=== PATIENT | male | born 1945 | race Caucasian/White ===

== ENCOUNTER 2018-01-25 11:31 | Outpatient (REF) | payer MEDICARE, BC, SELFPAY ==
[2018-01-25 23:53] LABS: Uric Acid 5.5 mg/dL (3.5-7.2)
== END 2018-01-25 11:51 ==
LOC: NCHCN 11:31
PROVIDERS: PCP Internal Medicine; Visit Provider Internal Medicine
DX: M10.9 Gout, unspecified (principal)
CPT/HCPCS: 84550

== ENCOUNTER 2020-02-08 14:01 | Outpatient (REF) | payer MEDICARE, BC, SELFPAY ==
[2020-02-08 21:35] LABS: Calculated LDL 73 mg/dL (<100); Cholesterol 162 mg/dL (<200); HDL Cholesterol 54 mg/dL (40-60); Triglyceride 175 mg/dL (<150)
== END 2020-02-08 14:21 ==
LOC: NCHCN 14:01
PROVIDERS: PCP Internal Medicine; Visit Provider Internal Medicine
DX: I10 Essential (primary) hypertension (principal); I25.10 Atherosclerotic heart disease of native coronary artery without angina pectoris
CPT/HCPCS: 80061

== ENCOUNTER 2021-02-04 15:12 | Outpatient (REF) | payer MEDICARE, BC, SELFPAY ==
[2021-02-04 19:10] LABS: Anion Gap 8.6 mmol/L (3-11); BUN 29 mg/dL (7-18); CO2 28.4 mmol/L (21.0-32.0); CREATININE 1.5 mg/dL (0.70-1.30); Calcium 8.8 mg/dL (8.5-10.1); Calculated LDL 58 mg/dL (<100); Chloride 108 mmol/L (98-107); Cholesterol 134 mg/dL (<200); Estimated GFR 45.75 (mL/min/1.73m2); Glucose 91 mg/dL (74-106); HDL Cholesterol 44 mg/dL (40-60); Potassium 3.8 mmol/L (3.5-5.1); Sodium 145 mmol/L (136-145); Triglyceride 163 mg/dL (<150)
== END 2021-02-04 15:13 | disposition home or self-care (01) ==
LOC: NCHCN 15:12
PROVIDERS: PCP Internal Medicine; Visit Provider Internal Medicine
DX: E78.5 Hyperlipidemia, unspecified (principal); I10 Essential (primary) hypertension
CPT/HCPCS: 80048; 80061

== ENCOUNTER 2021-04-01 20:49 | Outpatient (REF) | payer MEDICARE, BC, SELFPAY ==
[2021-04-01 22:12] LABS: Abs Immature Grans 0.04 10^3/uL (0.0-0.06); Absolute Basophil Count 0.01 10^3/uL (0.0-0.2); Absolute Eosinophil Count 0.12 10^3/uL (0.0-0.7); Absolute Lymphocyte Count 2.54 10^3/uL (1.2-3.4); Absolute Monocyte Count 0.64 10^3/uL (0.1-0.8); Absolute Neutrophil Count 3.16 10^3/uL (1.2-6.7); Basophils % 0.2; Eosinophils % 1.8; HCT 46.6 % (40.0-50.0); HGB 16.1 g/dL (13.5-17.5); Immature Grans % 0.6; MCH 32.5 pg (27.0-33.0); MCHC 34.5 % (32.0-36.0); Monocytes % 9.8; Neutrophils % 48.6; Nucleated RBC 0 %; Platelet Count 209 10^3/uL (130-400); RBC 4.96 10^6/uL (4.36-5.78); RDW 12.5 % (11.8-14.1); RDW-SD 42.9 fL; WBC 6.51 10^3/uL (4.4-10.8)
[2021-04-02 07:11] LABS: Albumin 4.7 g/dL (3.4-5.0); Alkaline Phosphatase 98 U/L (46-116); BUN 26 mg/dL (7-18); Bilirubin, Total 0.7 mg/dL (0.2-1.0); CREATININE 1.3 mg/dL (0.70-1.30); Estimated GFR 53.96 (mL/min/1.73m2); Glucose 79 mg/dL (74-106); Sodium 144 mmol/L (136-145); Total Protein 8.1 g/dL (6.4-8.2)
[2021-04-02 07:12] LABS: ALT 45 U/L (16-63); AST 24 U/L (15-37); Anion Gap 10.1 mmol/L (3-11); CO2 27.9 mmol/L (21.0-32.0); Chloride 106 mmol/L (98-107); NT-proBNP 235 pg/mL (<300); Potassium 3.7 mmol/L (3.5-5.1); TSH (W/Ref FT4) 1.74 uIU/mL (0.36-3.74)
== END 2021-04-01 20:50 | disposition home or self-care (01) ==
LOC: NCHCN 20:49
PROVIDERS: PCP Internal Medicine; Visit Provider Internal Medicine
DX: N18.31 Chronic kidney disease, stage 3a (principal); I25.10 Atherosclerotic heart disease of native coronary artery without angina pectoris; R06.02 Shortness of breath; R06.01 Orthopnea
CPT/HCPCS: 80053; 83880; 84443; 85025

== ENCOUNTER 2021-05-12 14:07 | Outpatient (REF) | payer MEDICARE, BC, SELFPAY ==
[2021-05-12 21:32] LABS: Anion Gap 7.3 mmol/L (3-11); BUN 26 mg/dL (7-18); CO2 31.7 mmol/L (21.0-32.0); CREATININE 1.3 mg/dL (0.70-1.30); Calcium 9.2 mg/dL (8.5-10.1); Chloride 104 mmol/L (98-107); Estimated GFR 53.96 (mL/min/1.73m2); Glucose 88 mg/dL (74-106); Potassium 3.5 mmol/L (3.5-5.1); Sodium 143 mmol/L (136-145)
== END 2021-05-12 14:08 | disposition home or self-care (01) ==
LOC: NCHCN 14:07
PROVIDERS: PCP Internal Medicine; Visit Provider Internal Medicine
DX: N18.31 Chronic kidney disease, stage 3a (principal)
CPT/HCPCS: 80048

== ENCOUNTER 2022-02-08 14:35 | Outpatient (REF) | payer MEDICARE, SELFPAY ==
[2022-02-08 21:03] LABS: Anion Gap 8.5 mmol/L (3-11); BUN 26 mg/dL (7-18); CO2 30.5 mmol/L (21.0-32.0); CREATININE 1.2 mg/dL (0.70-1.30); Calcium 10.1 mg/dL (8.5-10.1); Calculated LDL 68 mg/dL (<100); Chloride 102 mmol/L (98-107); Cholesterol 157 mg/dL (<200); Estimated GFR 63.07 (mL/min/1.73m2); Glucose 88 mg/dL (74-106); HDL Cholesterol 65 mg/dL (40-60); Potassium 4.1 mmol/L (3.5-5.1); Sodium 141 mmol/L (136-145); Triglyceride 123 mg/dL (<150)
== END 2022-02-08 14:36 | disposition home or self-care (01) ==
LOC: NCHCN 14:35
PROVIDERS: PCP Internal Medicine; Visit Provider Internal Medicine
DX: E78.5 Hyperlipidemia, unspecified (principal); I10 Essential (primary) hypertension; N18.31 Chronic kidney disease, stage 3a; Z00.00 Encounter for general adult medical examination without abnormal findings
CPT/HCPCS: 80048; 80061

== ENCOUNTER 2023-02-10 20:00 | Outpatient (REF) | payer MEDICARE, SELFPAY ==
[2023-02-10 14:34] LABS: Anion Gap 7.8 mmol/L (3-11); BUN 26 mg/dL (7-18); CO2 26.2 mmol/L (21.0-32.0); CREATININE 1.4 mg/dL (0.70-1.30); Chloride 106 mmol/L (98-107); Estimated GFR 52.09 (mL/min/1.73m2); Glucose 101 mg/dL (74-106); Sodium 140 mmol/L (136-145)
== END 2023-02-10 20:01 | disposition home or self-care (01) ==
LOC: NCHCN 20:00
PROVIDERS: PCP Internal Medicine; Visit Provider Internal Medicine
DX: I10 Essential (primary) hypertension (principal)
CPT/HCPCS: 80048

== ENCOUNTER 2023-12-30 15:14 | Outpatient (REF) | payer MEDICARE, SELFPAY ==
--- OUTSIDE RECORDS SUMMARY | 2023-12-30 15:17 | XMS_ITS | Data Portability ---
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 tablet by mouth once a day 11/05 completed Not Available Not Available Not Available aspirin 81 mg tablet,de layed release Take 1 tablet by mouth once a day active hold until 01/03/24 after completi ng course of aspirin 325 mg bid Not Available Not Available Not Available tramadol 50 mg tablet TAKE 1-2 TABLETS BY ORAL ROUTE EVERY 6 HOURS NEEDED 12/29 completed Not Available Not Available Not Available acetamino phen 500 mg tablet Take 2 tablet by mouth every six hours as needed for pain active Not Available Not Available No t Available spironola ctone 25 mg tablet TAKE 1/2 TABLET BY MOUTH DAILY active Not Available Not Available No t Available amoxicill in 500 mg tablet Take 4 tablet by mouth 12/31 completed Not Available Not Available Not Available carvedilo l 3.125 mg tablet TAKE 1 TABLET BY MOUTH TWICE DAILY WITH FOOD active Not Available Not Available No t Available pantopraz ole 20 mg tablet,de layed release TAKE 1 TABLET BY MOUTH EVERY DAY active Not Available Not Available No t Available Celebrex 200 mg capsule 1TAB daily 09/27 completed Not Available Not Available Not Available meloxicam 7.5 mg tablet Take 1 tablet every day by oral route for 14 days. 12/15 completed Not Available Not Available Not Available Nitrostat 0.4 mg sublingua l tablet Place 1 tablet under tongue as directed 2020 active Not Available Not Available Not Avai lable amlodipin e 10 mg tablet Take 1/2 tablet by mouth once a day 02/15 completed Not Available Not Available Not Available pantopraz ole 40 mg tablet,de layed release 1 tablet by mouth once a day 02/11 completed Not Available Not Available Not Available Cipro 500 mg tablet 1 bid 09/16 completed Not Available Not Available Not Available glucosami ne sulfate 500 mg capsule 1 tab daily 2013 active Not Available Not Available Not Avai lable lisinopri l 20 mg-hydroc hlorothia zide 25 mg tablet TAKE 1 TABLET BY MOUTH EVERY DAY active Not Available Not Available No t Available aspirin 81 mg tablet Take 1 tablet by mouth once a day 10/15 completed Not Available Not Available Not Available gabapenti n 100 mg capsule start at 100mg at HS, increasi ng to 100mg bid if tolerate d 11/18 completed Not Available Not Available Not Available metoprolo l succinate ER 25 mg tablet,ex tended release 24 hr Take 1 tablet by mouth once a day 02/23 completed Not Available Not Available Not Available Viagra 100 mg tablet 0.5 tablet by mouth as directed as needed 2021 active Not Available Not Available Not Avai lable lisinopri l 10 mg-hydroc hlorothia zide 12.5 mg tablet 2 qd 2014 active Not Available Not Available Not Avai lable Nitro-Dur 0.4 mg/hr transderm al 24 hour patch 1 tab q 5 minutes prn 2013 active Not Available Not Available Not Avai lable multivita min capsule daily 2011 active Not Available Not Available Not Avai lable oxycodone 5 mg tablet Take 1 tablet every 6 hours by oral route as needed. 12/15 completed Not Available Not Available Not Available rosuvasta tin 10 mg tablet Take 1 tablet by mouth once a day increase after 1 month to 20 mg if doing fine 09/09 completed Not Available Not Available Not Available rosuvasta tin 20 mg tablet TAKE 1 TABLET BY MOUTH EVERY DAY 12/06 completed increase d to 40 mg by PCP Not Available Not Available Not Available rosuvasta tin 40 mg tablet TAKE 1 TABLET BY MOUTH EVERY DAY active Not Available Not Available No t Available EpiPen 0.3 mg/0.3 mL injection , auto-inje ctor Take by injectio n route. active Not Available Not Available No t Available EpiPen 2009 active Not Available Not Available Not Avai lable Glucosami ne 1 qd 2013 active Not Available Not Available Not Avai lable multivita min 2011 active Not Available Not Available Not Avai lable Multivita mins once a day 03/02 completed Not Available Not Available Not Available Zostavax (PF) 08/15 completed Not Available Not Available Not Available Farxiga 10 mg tablet TAKE 1 TABLET BY MOUTH DAILY active Not Available Not Available No t Available Entresto 97 mg-103 mg tablet TAKE 1 TABLET BY MOUTH TWICE DAILY active Not Available Not Available No t Available Entresto 49 mg-51 mg tablet TAKE 1 TABLET BY MOUTH TWICE DAILY 12/13 completed dose increase 10/13/23 Not Available Not Available Not Available Entresto 24 mg-26 mg tablet 1 tablet by mouth twice a day 2022 active Not Available Not Available Not Avai lable Narcan 4 mg/actuat ion nasal spray Take by nasal route. 12/29 completed Not Available Not Available Not Available Vitals Date Recorded Body height Body mass index (BMI) Body weight Oxygen saturation Oxygen saturation in Arterial blood by Pulse oximetry Heart rate Body temperature Systolic blood pressure Diastolic blood pressure Provider Name and Address Organization Details Last Updated DateTime 4 179.324 cm 29.8 kg/m2 75677.9 9 g 100 % 100 % 79 /min 97.9 [degF] 100 mm[Hg] 78 mm[Hg] XIMENA BRADSHAW MA [facility] 4 14:50:35 Date Recorded Body height Body mass index (BMI) Body weight Body temperature Oxygen saturation Oxygen saturation in Arterial blood by Pulse oximetry Heart rate Systolic blood pressure Diastolic blood pressure Provider Name and Address Organization Details Last Updated DateTime 4 179.324 cm 29.7 kg/m2 93748.5 g 97.7 [degF] 94 % 94 % 76 /min 112 mm[Hg] 74 mm[Hg] LIBERTY ANAND LPN [facility] 4 13:41:51 Date Recorded Body height Body mass index (BMI) Body weight Body temperature Oxygen saturation Oxygen saturation in Arterial blood by Pulse oximetry Heart rate Systolic blood pressure Diastolic blood pressure Provider Name and Address Organization Details Last Updated DateTime 4 179.324 cm 29.2 kg/m2 40719.9 g 97.3 [degF] 99 % 99 % 76 /min 116 mm[Hg] 64 mm[Hg] Effie Garcia LPN [facility] 4 12:54:57 Social History Question Answer Notes LastModified by Organizat ion Details LastModified Time Tobacco Smoking Status Never Smoker LIBERTY ANAND LPN [facility] 12/16/2023 13:45:02 What Was The Date Of Your Most Recent Tobacco Screening? 12/30/2023 [email or web address] Information not available 12/30/2023 Has Tobacco Cessation Counseling Been Provided? No Information not available 12/16/2023 Do You Or Have You Ever Used Any Other Forms Of Tobacco Or Nicotine? No Information not available 12/16/2023 Sex: Male Functional Status None recorded. Mental Status None recorded. Family History Relationship Description Onset Age of this Age Resolved Age Notes Mother Family history of he art failure Notes:*Problem: Mother: dece ased age 78 cause HEART DISEASE Father: age 76 cause PROSTATE CA Sisters: 2, 1 on Rx for HTN; , age 65, GAME [employer]OPER tumor Brothers: none Children: 2, both well Family History of: Hypertension: yes Hyperlipidemia: yes Coronary heart disease: yes Diabetes mellitus: no Breast cancer: no Colorectal cancer: yes Alcoholism: no Mental illness: no Other: PROSTATE CA --paternal uncle too 09/22/16 His youngest son recently had a cardiac event requiring a stent. Medical History No medical history recorded. Immunizations Vaccine Type Date Status Provider Name and Address Organization Details Recorded Time Tdap 01/08/2016 completed Not Available [facility] 04:49:50 Tdap 03/13/2007 completed Not Available [facility] 04:49:50 zoster live 04/15/2019 completed Not Available [facility] 04/01/2023 04:49:51 Pneumococcal conjugate PCV 13 09/15/2015 completed Not Available [facility] 04/01/2023 04:49:51 Influenza, high-dose, trivalent, PF 05/18/2016 completed Not Available [facility] 04/01/2023 04:49:51 Td(adult) unspecified formulation 04/22/1997 completed Not Available [facility] 04/01/2023 04:49:51 Influenza, split virus, quadrivalent, preservative 03/07/2017 completed Not Available [facility] 04/01/2023 04:49:52 zoster recombinant 01/01/2020 completed Not Available [facility] 04/01/2023 04:49:52 Influenza, high-dose, quadrivalent, PF 02/11/2021 completed Not Available [facility] 04/01/2023 04:49:53 COVID-19, mRNA, LNP-S, PF, 30 mcg/0.3 mL dose, richard-sucrose 09/29/2021 completed Not Available [facility] 04/01/2023 04:49:53 COVID-19, mRNA, LNP-S, bivalent, PF, 30 mcg/0.3 mL dose 02/15/2022 completed Not Available [facility] 04/01/20 04:49:53 pneumococcal polysaccharide PPV23 08/16/2011 completed Not Available [facility] 2022 04:49:54 influenza, unspecified formulation 03/13/2007 completed Not Available [facility] 04/01/2023 04:49:54 influenza, unspecified formulation 03/29/2011 completed Not Available [facility] 04/01/2023 04:49:54 influenza, unspecified formulation 04/03/2014 completed Not Available [facility] 04/01/2023 04:49:54 influenza, unspecified formulation 05/06/2008 completed Not Available [facility] 04/01/2023 04:49:54 Influenza, high-dose, quadrivalent, PF 02/23/2023 completed Not Available [facility] 06/03/2023 05:33:00 Past Encounters Encounter ID Performer Location Encounter Start Date Encounter Closed Date Diagnosis/Indication Diagnosis SNOMED-CT Code [id number] JESUS HENDRICKS MD [address] [address] 11/14/2023 14:18:03 11/14/2023 15:23:25 Heart failure with reduced ejection fraction 230435486 Chronic ki dney disease stage 3A 189231425 Atheroscle rosis of coronary artery without angina pectoris [id number] Erythrocytosis 836180653 Cardiac pa cemaker in situ 939806291 Pre-surger y evaluation 698138932 Hyperlipidemia 18109214 [id number] JESUS HENDRICKS MD [address] [address] 12/16/2023 13:33:33 12/16/2023 14:16:47 Malaise and fatigue 324194514 [id number] Andrew Haley [address] [address] 12/30/2023 12:36:31 12/30/2023 13:53:12 Transient visual loss 42328645 Malaise and fatigue 2717 [address] Health Concerns Section Related Observation LastModified by Organization Detai ls LastModified Time None Recorded Concern Status LastModified by Organization Details LastModified Time None Recorded Advance Directives Directive None Recorded Payers Encounter Date Sequence Insurance Name Policy Number Policy Bright Covered Member ID Bright Member ID Guarantor Name 11/14/2023 3 [place] [employer] Elvia Peña [id number] Elvia Peña 11/14/2023 2 [place] PROVIDERS [place]) [id number] Elvia Peña [id number] Elvia Peña 12/16/2023 1 [place]ANT[place] - [place]) Elvia Peña [id number] Elvia Peña 12/16/2023 [place] [id number] ([place]IC[place]) Elvia Peña [id number] Elvia Peña Notes Date Note Type Note Provider Name and Address Organization Details Recorded Time 11/14/2023 text/html HPI Notes: Here for Pre op eval for left TNOIE to be performed by Dr. Celis on 12/05/2023 for left hip OA that has been increasingly bothersome and limiting activity. He has been doing much better from a cardiac standpoint since starting entresto and farxiga, dyspnea is much improved. 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 He does get somewhat dyspneic with activities like push mowing, about 15-20 minutes in he needs to take a break and then can keep goign. No chest pain, palpitations, dizziness, or pedal edema. No cough, no orthopnea. GERD is well controlled on low dose ppi. He is feeling well on his current med regimen. Weight is stable, careful with salt. His is on top of healthy eating, has a lot of vegetables. No gout episodes. He is on vitamin D per Dr. Celis He doesn't snore unless he lays on his back. He intentionally takes naps during the day, about an hour, which has been true for a few years. He sleeps 8 hours overnight, does not snore except occasionally if he's on his back. He is going through a root canal this week. but has no tooth pain or difficulty eating. Vision is stable, has new glasses. Hearing aids are working well. MD Johnnie [address], [place], [phone], [facility]. 11/15/2023 16:07:52 12/16/2023 text/html HPI Notes: Marcelino is here with his Rosalind to f/u ED visit for nausea, malaise, dizziness. He had left hip replacement surgery 12/04, discharged the next day. [place] ok for a couple of days then started to feel poorly. T HE received a small fluid bolus in the ED, felt to be mildly dehydrated, felt quite a bit better after this. HE has continued to feel better this week, had a great day yesterday, however today for some reason he feels poorly again. Drinking 40 ounces of fluids daily now, a mix of water and gatorade, this is more than he usually drinks. Urinating normally, no dysuria, perhaps slightly darker, Not dizzy when he stands up today, just doesn't feel great, mildly weak. He had a good breakfast, then took a nap, Had peanut butter crackers for lunch. No fever/chills. He has been taking nightly tramadol with tylenol at night which is managing pain well, feels pain is improving and likely won't need the tramadol now. He does wake up a few times at night, to urinate and to change positions with hip discomfort. Never took meloxicam. No chest pain or palpitations. Perhaps mild dyspnea with exertion. No edema. BP averages 90s-110s/50s-60s perhaps slightly lower than baseline but isn't sure about this. PT is going well for his hip. JESUS HENDRICKS MD [address], [place], [address], [facility]. 12/17/2023 14:12:09
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
--- OUTSIDE RECORDS SUMMARY | 2023-12-30 15:18 | XMS_ITS ---
Author Organization Unknown Address [address] [place] [phone] Phone Care Team Providers Care Lean Manager Name Role Phone INDU Manuel Attending Unavailable ELADIO Altamirano Primary Unavailable Social History Type Status Start Date End Date Code Code Syst em Smoking History Never smoker (Never Smoked) 413707750 SNOMED CT Sex Male Medications Medication Start Date End Date Route Frequency Dose Code Code System Medication Instructions Home Meds Allopurinol 100MG Oral Tablet 05/31/2018 08/16/2023 ORAL DAILY 100 MILLIGRAMS 893710 RxNorm TAKE 100 MILLIGRAMS ORAL DAILY Aspir Low 81MG Oral Tablet, Enteric Coated 05/31/2018 Unknown ORAL DAILY 81 MILLIGRAMS 6401233 RxNorm TAKE 81 MILLIGRAMS ORAL DAILY Atorvastatin Calcium 40MG Oral Tablet 05/31/2018 08/16/2023 ORAL DAILY 40 MILLIGRAMS 065576 RxNorm TAKE 40 MILLIGRAMS ORAL DAILY Clopidogrel 75MG Oral Tablet 05/31/2018 12/18/2021 ORAL DAILY 75 MILLIGRAMS 079484 RxNorm TAKE 75 MILLIGRAMS ORAL DAILY EPIPEN 0.9MG/0.3ML;N O STREN MULITPL 05/31/2018 Unknown INTRAM USCULA R NEEDED 1 RxNorm INJECT 1 INTRAMUSCUL AR NEEDED GLUCOSAMINE TABLET 05/31/2018 Unknown ORAL DAILY 1 TABLET RxNorm TAKE 1 TABLET ORAL DAILY Lisinopril/hy droCHLOROthia zide 20MG-25MG Oral Tablet 05/31/2018 08/16/2023 ORAL DAILY 1 TABLET [id number] RxNorm TAKE 1 TABLET ORAL DAILY Pantoprazole Sodium 40MG Oral Tablet, Enteric Coated 05/31/2018 12/18/2021 ORAL DAILY 40 MILLIGRAMS 569892 RxNorm TAKE 40 MILLIGRAMS ORAL DAILY TYLENOL 325MG ORAL TABLET 05/31/2018 08/16/2023 ORAL FOUR TIMES A DAY 325 MILLIGRAMS RxNorm TAKE 325 MILLIGRAMS ORAL FOUR TIMES A DAY amLODIPine Besylate 5MG Oral Tablet 05/31/2018 08/16/2023 ORAL DAILY 5 MILLIGRAMS 19721021 RxNorm TAKE 5 MILLIGRAMS ORAL DAILY Torsemide 20MG Oral Tablet 08/16/2023 12/10/2023 ORAL DAILY 1 TABLET [id number] RxNorm TAKE 1 TABLET ORAL DAILY Assessment You had the following problems:OSTEOARTHROSIS, LOCALIZED, NOT SPECIFIED WHETHER PRIMARY OR SECONDARY, INVOLVIN Hospital Discharge Instructions Should you have any questions prior to discharge, please contact a member of your healthcare team. If you have left the hospital and have any questions, please contact your primary care physician. Reason For Referral No Data Found Problems Problem Start Date Resolved Date Status Code Code System OSTEOARTHROSIS, LOCALIZED, N OT SPECIFIED WHETHER PRIMARY OR SECONDARY, INVOLVIN active 432314413 SNOMED-C T Allergies and Adverse Reactions Allergy Substance Reaction Severity Start Date Concern Status Code Code Syste m BEE VENOM Anaphylaxis (SNOMED-CT: 75207209) Moderate Active Plan of Treatment Pre-Op Covid-19 Testing 02/18/2020 X-RAY 02/25/2023 NM MPI STR/RST 09/29/2022 X-RAY 04/02/2021 Encounters Encounter Diagnosis Start Date Code Code Sys tem Atherosclerotic heart diseas e of [place] coronary artery without angina pectoris 09/04/2021 SNOMED-CT Personal Care Team Section Performer Name Performer Role Active Date Inactive Da archana
--- OUTSIDE RECORDS SUMMARY | 2023-12-30 15:18 | XMS_ITS ---
Author Organization Unknown Address [address] [place] [phone] Phone Care Team Providers Care Karate Black Belt Name Role Phone INDU Manuel Attending Unavailable ELADIO Altamirano Primary Unavailable Social History Type Status Start Date End Date Code Code Syst em Smoking History Never smoker (Never Smoked) 768585321 SNOMED CT Sex Male Medications Medication Start Date End Date Route Frequency Dose Code Code System Medication Instructions Home Meds Allopurinol 100MG Oral Tablet 05/31/2018 08/16/2023 ORAL DAILY 100 MILLIGRAMS 894877 RxNorm TAKE 100 MILLIGRAMS ORAL DAILY Aspir Low 81MG Oral Tablet, Enteric Coated 05/31/2018 Unknown ORAL DAILY 81 MILLIGRAMS 5980215 RxNorm TAKE 81 MILLIGRAMS ORAL DAILY Atorvastatin Calcium 40MG Oral Tablet 05/31/2018 08/16/2023 ORAL DAILY 40 MILLIGRAMS 218194 RxNorm TAKE 40 MILLIGRAMS ORAL DAILY Clopidogrel 75MG Oral Tablet 05/31/2018 12/18/2021 ORAL DAILY 75 MILLIGRAMS 920642 RxNorm TAKE 75 MILLIGRAMS ORAL DAILY EPIPEN 0.9MG/0.3ML;N O STREN MULITPL 05/31/2018 Unknown INTRAM USCULA R NEEDED 1 RxNorm INJECT 1 INTRAMUSCUL AR NEEDED GLUCOSAMINE TABLET 05/31/2018 Unknown ORAL DAILY 1 TABLET RxNorm TAKE 1 TABLET ORAL DAILY Lisinopril/hy droCHLOROthia zide 20MG-25MG Oral Tablet 05/31/2018 08/16/2023 ORAL DAILY 1 TABLET 609540 RxNorm TAKE 1 TABLET ORAL DAILY Pantoprazole Sodium 40MG Oral Tablet, Enteric Coated 05/31/2018 12/18/2021 ORAL DAILY 40 MILLIGRAMS 832994 RxNorm TAKE 40 MILLIGRAMS ORAL DAILY TYLENOL [...] SPECIFIED WHETHER PRIMARY OR SECONDARY, INVOLVIN active 686314425 SNOMED-C T Allergies and Adverse Reactions Allergy Substance Reaction Severity Start Date Concern Status Code Code Syste m BEE VENOM Anaphylaxis (SNOMED-CT: 02540215) Moderate Active Plan of Treatment Pre-Op Covid-19 Testing 02/18/2020 X-RAY 02/25/2023 NM MPI STR/RST 09/29/2022 X-RAY 04/02/2021 Encounters Encounter Diagnosis Start Date Code Code Sys tem Refusal of treatment by patient 04/24/2021 500756004 SNOMED-CT Personal Care Team Section Performer Name Performer Role Active Date Inactive Gordo magaña
--- OUTSIDE RECORDS SUMMARY | 2023-12-30 15:18 | XMS_ITS ---
Author Organization Unknown Address [address] [place] [phone] Phone Care Team Providers Care Machine Sole Leveler Name Role Phone INDU Manuel Attending Unavailable ELADIO Altamirano Primary Unavailable Social History Type Status Start Date End Date Code Code Syst em Smoking History Never smoker (Never Smoked) 072597343 SNOMED CT Sex Male Medications Medication Start Date End Date Route Frequency Dose Code Code System Medication Instructions Home Meds Allopurinol 100MG Oral Tablet 05/31/2018 08/16/2023 ORAL DAILY 100 MILLIGRAMS 867692 RxNorm TAKE 100 MILLIGRAMS ORAL DAILY Aspir Low 81MG Oral Tablet, Enteric Coated 05/31/2018 Unknown ORAL DAILY 81 MILLIGRAMS 3388331 RxNorm TAKE 81 MILLIGRAMS ORAL DAILY Atorvastatin Calcium 40MG Oral Tablet 05/31/2018 08/16/2023 ORAL DAILY 40 MILLIGRAMS 512551 RxNorm TAKE 40 MILLIGRAMS ORAL DAILY EPIPEN 0.9MG/0.3ML;N O STREN MULITPL 05/31/2018 Unknown INTRAM USCULA R NEEDED 1 RxNorm INJECT 1 INTRAMUSCUL AR NEEDED GLUCOSAMINE TABLET 05/31/2018 Unknown ORAL DAILY 1 TABLET RxNorm TAKE 1 TABLET ORAL DAILY Lisinopril/hy droCHLOROthia zide 20MG-25MG Oral Tablet 05/31/2018 08/16/2023 ORAL DAILY 1 TABLET 19771227 RxNorm TAKE 1 TABLET ORAL DAILY TYLENOL 325MG ORAL TABLET 05/31/2018 08/16/2023 ORAL FOUR TIMES A DAY 325 MILLIGRAMS RxNorm TAKE 325 MILLIGRAMS ORAL FOUR TIMES A DAY amLODIPine Besylate 5MG Oral Tablet 05/31/2018 08/16/2023 ORAL DAILY 5 MILLIGRAMS 19721021 RxNorm TAKE 5 MILLIGRAMS ORAL DAILY Torsemide 20MG Oral Tablet 08/16/2023 12/10/2023 ORAL DAILY 1 TABLET [id number] RxNorm TAKE 1 TABLET ORAL DAILY Assessment [...] SPECIFIED WHETHER PRIMARY OR SECONDARY, INVOLVIN active 603821891 SNOMED-C T Allergies and Adverse Reactions Allergy Substance Reaction Severity Start Date Concern Status Code Code Syste m BEE VENOM Anaphylaxis (SNOMED-CT: 61639070) Moderate Active Plan of Treatment Pre-Op Covid-19 Testing 02/18/2020 X-RAY 02/25/2023 NM MPI STR/RST 09/29/2022 X-RAY 04/02/2021 Encounters Encounter Diagnosis Start Date Code Code Sys tem Atherosclerotic heart diseas e of [place] coronary artery without angina pectoris 01/21/2022 SNOMED-CT Personal Care Team Section Performer Name Performer Role Active Date Inactive Da te
--- OUTSIDE RECORDS SUMMARY | 2023-12-30 15:19 | XMS_ITS ---
Author Organization Unknown Address [address] [place] [phone] Phone Care Team Providers Care Cager Operator Name Role Phone INDU Manuel Attending Unavailable ELADIO Altamirano Primary Unavailable Social History Type Status Start Date End Date Code Code Syst em Smoking History Never smoker (Never Smoked) 965419161 SNOMED CT Sex Male Medications Medication Start Date End Date Route Frequency Dose Code Code System Medication Instructions Home Meds Allopurinol 100MG Oral Tablet 05/31/2018 08/16/2023 ORAL DAILY 100 MILLIGRAMS 120071 RxNorm TAKE 100 MILLIGRAMS ORAL DAILY Aspir Low 81MG Oral Tablet, Enteric Coated 05/31/2018 Unknown ORAL DAILY 81 MILLIGRAMS 5777333 RxNorm TAKE 81 MILLIGRAMS ORAL DAILY Atorvastatin Calcium 40MG Oral Tablet 05/31/2018 08/16/2023 ORAL DAILY 40 MILLIGRAMS 669754 RxNorm TAKE 40 MILLIGRAMS ORAL DAILY EPIPEN [...] Tablet 08/16/2023 12/10/2023 ORAL DAILY 1 TABLET 319409 RxNorm TAKE 1 TABLET ORAL DAILY Assessment [...] SPECIFIED WHETHER PRIMARY OR SECONDARY, INVOLVIN active 654654223 SNOMED-C T Allergies and Adverse Reactions Allergy Substance Reaction Severity Start Date Concern Status Code Code Syste m BEE VENOM Anaphylaxis (SNOMED-CT: 10167084) Moderate Active Plan of Treatment Pre-Op Covid-19 Testing 02/18/2020 X-RAY 02/25/2023 NM MPI STR/RST 09/29/2022 X-RAY 04/02/2021 Encounters Encounter Diagnosis Start Date Code Code Sys tem 09/09/2022 [id number] SNOMED-CT Personal Care Team Section Performer Name Performer Role Active Date Inactive Da te
--- OUTSIDE RECORDS SUMMARY | 2023-12-30 15:19 | XMS_ITS ---
Author Organization Unknown Address [address] [place] [phone] Phone Care Team Providers Care Cytogenetics Laboratory Manager Name Role Phone JONO MOREIRA Attending Unavailable ELADIO Altamirano Primary Unavailable Results [facility] COMPLETE - Completed: 09/29/2022 10:32 LOINC: [place], [place] [address] PACS WOOL FLEECE GRADER REPORT Patient Name: ELVIA BEAUCHAMP MRN: Sex: : Age: [id number] M 1945 77 Account: Accession: Admit: StayType: [id number] 09/29/2022 CLINIC Ordered: Order ID: Submitted: Ordering Provider: 09/29/2022 08:50 [id number] P LILLIE DE LA CRUZ Completed: Technologist: Resulted: 09/29/2022 10:32 HTP 09/29/2022 17:31 Vasodilator/Pharmacologic Nuclear Stress Test Date: 09/29/2022 08:11 AM EDT Ordering Provider: LILLIE DE LA CRUZ Referring Provider: LILLIE DE LA CRUZ ID number: [id number] Date of : 1945 Age: 77Y Indication for test: CAD, ABN EKG, FATIGUE, HEART BLOCK The patient underwent vasodilator nuclear stress testing. 11.0 mCi technetium administered at 0845 hours as rest dose radionuclide 31.5 mCi technetium administered at 1000 hours as stress dose radionuclide Baseline BP: 139/79 baseline HR: 81 Baseline ECG: Atrial paced rhythm 82 bpm. Left axis deviation. T wave inversion lead I, L. Q waves leads III, F. There appears to be a delta wave V2 V3 V4. Hemodynamic response: Normal Chest pain: None Arrhythmia: None EKG changes: No ischemic change. Delta waves appear to improve with increased heart rate. Gated imaging demonstrates an ejection fraction of 31%, moderate global hypokinesis, severe inferior hypokinesis. Perfusion imaging demonstrates a large intense fixed inferior/inferoapical defect. 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 Negative ischemia. Significant cardiomyopathy. Question delta waves as described above. Report Digitally Signed by Edwardo Brito on 09/29/2022 05:31 PM EDT 09/29/22.1734.HTP.to ELADIO MARIEE via fax Social History Type Status Start Date End Date Code Code Syst em Smoking History Never smoker (Never Smoked) 310773800 SNOMED CT Sex Male Medications Medication Start Date End Date Route Frequency Dose Code Code System Medication Instructions Home Meds Allopurinol 100MG Oral Tablet 05/31/2018 08/16/2023 ORAL DAILY 100 MILLIGRAMS 853738 RxNorm TAKE 100 MILLIGRAMS ORAL DAILY Aspir Low 81MG Oral Tablet, Enteric Coated 05/31/2018 Unknown ORAL DAILY 81 MILLIGRAMS 4773217 RxNorm TAKE 81 MILLIGRAMS ORAL DAILY Atorvastatin Calcium 40MG Oral Tablet 05/31/2018 08/16/2023 ORAL DAILY 40 MILLIGRAMS 022328 RxNorm TAKE 40 MILLIGRAMS ORAL DAILY EPIPEN [...] SPECIFIED WHETHER PRIMARY OR SECONDARY, INVOLVIN active [id number] SNOMED-C T Allergies and Adverse Reactions Allergy Substance Reaction Severity Start Date Concern Status Code Code Syste m BEE VENOM Anaphylaxis (SNOMED-CT: 03899971) Moderate Active Plan of Treatment Pre-Op Covid-19 Testing 02/18/2020 X-RAY 02/25/2023 NM MPI STR/RST 09/29/2022 X-RAY 04/02/2021 Encounters Encounter Diagnosis Start Date Code Code Sys tem Abnormal result of other cardiovascular function study 09/29/2022 SNOMED-CT Personal Care Team Section Performer Name Performer Role Active Date Inactive Da archana
--- OUTSIDE RECORDS SUMMARY | 2023-12-30 15:20 | XMS_ITS ---
Author Organization Unknown Address [address] [place] [phone] Phone Care Team Providers Care Vessel Welder Name Role Phone ELADIO Altamirano Attending Unavailable Results XR HIP 2V OR 3V LT* - Comple destini: 02/25/2023 10:49 LOINC: [facility] [place], [place] [address] PACS PC SUPPORT SPECIALIST REPORT Patient Name: ELVIA BEAUCHAMP MRN: Sex: : Age: [id number] M 1945 77 Account: Accession: Admit: StayType: [id number] 02/25/2023 O/P Ordered: Order ID: Submitted: Ordering Provider: 02/25/2023 10:36 [id number] KT JESUS HENDRICKS Completed: Technologist: Resulted: 02/25/2023 10:49 AXH 02/25/2023 18:22 Study Description: XR HIP 2V OR 3V LT Study Reason: Pain TECHNIQUE: 2D digital imaging was performed. COMPARISON: Prior x-rays August 2013 FINDINGS: NUMBER OF VIEWS: 3 No pelvic nor hip fractures. Right hip prosthesis remains stable. There are significant degenerative changes in the opposite-left which have further progressed from 2014. There is [id number]-wv-nrde narrowing of the superior of the hip joint space. Also marginal osteophytes in the left femoral head. IMPRESSION: Degenerative changes in the left hip which have further progressed from 2014. Stable satisfactory appearance of the right hip prosthesis. Report Digitally Signed by Alex Leonard on 02/25/2023 06:22 PM EDT Social History Type Status Start Date End Date Code Code Syst em Smoking History Never smoker (Never Smoked) 260113200 SNOMED CT Sex Male Medications Medication Start Date End Date Route Frequency Dose Code Code System Medication Instructions Home Meds Allopurinol 100MG Oral Tablet 05/31/2018 08/16/2023 ORAL DAILY 100 MILLIGRAMS 19720531 RxNorm TAKE 100 MILLIGRAMS ORAL DAILY Aspir Low 81MG Oral Tablet, Enteric Coated 05/31/2018 Unknown ORAL DAILY 81 MILLIGRAMS 6609668 RxNorm TAKE 81 MILLIGRAMS ORAL DAILY Atorvastatin Calcium 40MG Oral Tablet 05/31/2018 08/16/2023 ORAL DAILY 40 MILLIGRAMS 486180 RxNorm TAKE 40 MILLIGRAMS ORAL DAILY EPIPEN [...] SPECIFIED WHETHER PRIMARY OR SECONDARY, INVOLVIN active 570839786 SNOMED-C T Allergies and Adverse Reactions Allergy Substance Reaction Severity Start Date Concern Status Code Code Syste m BEE VENOM Anaphylaxis (SNOMED-CT: 32958953) Moderate Active Plan of Treatment Pre-Op Covid-19 Testing 02/18/2020 X-RAY 02/25/2023 NM MPI STR/RST 09/29/2022 X-RAY 04/02/2021 Encounters Encounter Diagnosis Start Date Code Code Sys tem Unilateral primary osteoarthritis, left hip 02/25/2023 SNOMED-CT Personal Care Team Section Performer Name Performer Role Active Date Inactive Da te
--- OUTSIDE RECORDS SUMMARY | 2023-12-30 15:20 | XMS_ITS ---
Author Organization Unknown Address [address], [place] [phone] Phone Care Team Providers Care Engraver Machine Name Role Phone KIRBY GRIFFIN Registered Nurse UnavailJosi ADHIKARI Registered Nurse Unavailable SKIP Chavez Attending Unavailable MADONNA BOB Unavailable ELADIO Altamirano Primary Unavailable UNLISTED PROVIDER - REQUESTED Xhandoff Un available Results URINALYSIS WITH REFLEX CULT IF POSITIVE* - Collect Date/Time: 09/29/2022 22:39 [facility] ID: [id number] [address] [place] [address], [address] LOINC: 97017-9 Test Value Unit Reference Range Code Code System Flag COLLECTION MODE: CLEAN CATCH 53695-3 LOINC Color YELLOW yellow 5778-6 LOINC Appearance CLEAR clear 5767-9 LOINC Glucose urine NEGATIVE negative mg/dl 85366-4 LOINC Bilirubin NEGATIVE negative 5770-3 LOINC Ketones NEGATIVE negative mg/dl 2514-8 LOINC Spec gravity 1.015 1.003 - 1.030 5811-5 LOINC pH urine 6.0 5.0 - 7.0 2756-5 LOINC Protein NEGATIVE negative mg/dl 14273-0 LOINC Urobilinogen 0.2 <or= 1 EU/dl 09584-7 LOINC Nitrite. NEGATIVE negative 5802-4 LOINC Blood TRACE-IN negative 5794-3 LOINC A Leukocytes. NEGATIVE negative MICROSCOPIC INDICATED WBCs. 0-5 0-5 / hpf 87103-7 LOINC RBCs 0-5 0-5 / hpf 83491-9 LOINC Epith cells 0-5 0-5 / hpf 78694-1 LOINC Cell types squamous Crystals none none Bacteria none none Mucus present none 8247-9 LOINC Casts 0-5 none /lpf 41344-8 LOINC Cast types hyaline Other 39688-5 LOINC TROPONIN HIGH SENSITIVITY* - Collect Date/Time: 09/29/2022 20:37 [facility] ID: [id number] [address] [place] [address], [address] LOINC: 04640-8 Test Value Unit Reference Range Code Code System Flag TROPONIN HS 24.5 pg/mL L=0.0 H=60.4 Specimen seq. ADM. THYROID TESTING CASCADE* - C ollect Date/Time: 09/29/2022 20:37 [facility] ID: [id number] [address] [place] [address], [address] LOINC: 3016-3 Test Value Unit Reference Range Code Code System Flag TSH. 1.564 uIU/mL L=0.360 H=3.740 3014-8 LOINC PHOSPHORUS SERUM - Collect D ate/Time: 09/29/2022 20:37 [facility] ID: [id number] [address] [place] [address], [id number] LOINC: 2777-1 Test Value Unit Reference Range Code Code System Flag PHOSPHORUS SERUM 2.0 mg/dL L=2.2 H=4.2 LL MAGNESIUM SERUM* - Collect D ate/Time: 09/29/2022 20:37 [facility] ID: [id number] [address] [place] [address], [address] LOINC: 78696-4 Test Value Unit Reference Range Code Code System Flag MAGNESIUM 1.8 mg/dL L=1.8 H=2.4 23960-8 LOINC LIPASE* NEW - Collect Date/T maisha: 09/29/2022 20:37 [facility] ID: [id number] [address] [place] [address], [id number] LOINC: 3040-3 Test Value Unit Reference Range Code Code System Flag LIPASE. 36 U/L L=16 H=77 BNP (PRO-B NATRIURETIC PEPTI DE) - Collect Date/Time: 09/29/2022 20:37 [facility] ID: [id number] [address] [place] [address], [address] LOINC: 58741-5 Test Value Unit Reference Range Code Code System Flag NT-proBNP 416.0 pg/mL L=0.0 H=450 51048-0 LOINC CBC W/ DIFFERENTIAL* - Colle ct Date/Time: 09/29/2022 20:37 [facility] ID: [id number] [address] [place] [address], [address] LOINC: 70073-9 Test Value Unit Reference Range Code Code System Flag WBC 8.25 th/cmm L=5.00 H=10.00 6690-2 LOINC NEUT % 40.4 % L=40.0 H=80.0 LYMPH % 47.4 % L=10.0 H=50.0 MONO % 9.7 % L=2.0 H=12.0 86654-5 LOINC EOS % 1.5 % L=0.0 H=8.0 BASO % 0.5 % L=0.0 H=3.0 IG % 0.5 % L=0.0 H=1.1 2514-8 LOINC NRBC % 0.0 % L=0.0 H=0.0 11502-8 LOINC NEUT abs count 3.3 th/cmm L=1.6 H=8.4 751-8 LOINC LYMPH abs count 3.9 th/cmm L=1.5 H=4.0 731-0 LOINC MONO abs count 0.8 th/cmm L=0.2 H=1.0 742-7 LOINC EOS abs count 0.1 th/cmm L=0.0 H=0.5 711-2 LOINC BASO abs count 0.0 th/cmm L=0.0 H=0.2 704-7 LOINC IG abs count 0.0 th/cmm L=0.0 H=0.1 13881-3 LOINC NRBC abs count 0.0 mil/cmm L=0.0 H=0.0 24330-5 LOINC RBC 4.58 mil/cmm L=4.30 H=6.20 789-8 LOINC HEMOGLOBIN 15.0 gm/dL L=13.0 H=17.0 718-7 LOINC HEMATOCRIT 42 % L=45 H=52 4544-3 LOINC L MCV 92 fL L=82 H=92 787-2 LOINC MCH 32.8 pg L=27.0 H=31.0 785-6 LOINC H MCHC 35.8 % L=32.0 H=36.0 786-4 LOINC RDW-SD 41.7 fL L=39.0 H=49.0 788-0 LOINC PLATELET COUNT 197 th/cmm L=150 H=450 777-3 LOINC COMPREHENSIVE METABOLIC PANE L (CMP) - Collect Date/Time: 09/29/2022 20:37 [facility] ID: [id number] [address] [place], [place], [address] LOINC: 42368-6 Test Value Unit Reference Range Code Code System Flag GLUCOSE 87 mg/dL L=70 H=116 2345-7 LOINC BUN 27 mg/dL L=6 H=25 3094-0 LOINC H CREATININE 1.27 mg/dL L=0.67 H=1.17 2160-0 LOINC H SODIUM SERUM 139 mmol/L L=136 H=145 2951-2 LOINC POTASSIUM SERUM 3.3 mmol/L L=3.4 H=5.2 2823-3 LOINC L CHLORIDE SERUM 103 mmol/L L=96 H=110 2075-0 LOINC CARBON DIOXIDE (CO2) 25 mmol/L L=22 H=34 2028-9 LOINC ANION GAP 11.2 mmol/L 44768-9 LOINC CALCIUM SERUM 9.8 mg/dL L=8.2 H=10.2 84717-3 LOINC BILIRUBIN TOTAL 0.5 mg/dL L=0.0 H=1.3 1975-2 LOINC ALK. PHOS. 91 U/L L=46 H=116 6768-6 LOINC SGOT (AST) 29 U/L L=15 H=37 1920-8 LOINC SGPT (ALT) 28 U/L L=12 H=78 1742-6 LOINC TOTAL PROTEIN 7.3 gm/dL L=6.0 H=8.0 2885-2 LOINC ALBUMIN 3.8 gm/dL L=3.4 H=5.0 1751-7 LOINC AGE 77 years eGFR (non-Afr.Amer.) 55 mL/min 59477-7 LOINC eGFR (Afr-Jordanian) 67 mL/min 07741-[address] ANGIOGRAPHY HEAD NECK WWO 3D* - Completed: 09/30/2022 05:06 LOINC: [facility] [place], [place] [address] PACS ORACLE SOA DEVELOPER REPORT Patient Name: ELVIA BEAUCHAMP MRN: Sex: : Age: [id number] M 1945 77 Account: Accession: Admit: StayType: [id number] 09/29/2022 E/R Ordered: Order ID: Submitted: Ordering Provider: 09/29/2022 20:53 [id number] LADARIUS KENT Completed: Technologist: Resulted: 09/30/2022 05:06 DLP 09/30/2022 09:31 Study Description: CT ANGIOGRAPHY HEAD NECK WWO 3D* Study Reason: Vertigo Technique: Noncontrast head CT followed by scanning from the aortic arch to the vertex during arterial phase of IV contrast administration. Axial, coronal and sagittal reformatted images including MIP images of the head and neck in all three planes. Delayed post contrast images of the head also performed. IV contrast: Omnipaque 350 none cc COMPARISON: None FINDINGS: CT Head W/O, W IV contrast: Ventricles and Extra axial spaces: Normal in size and morphology for the patient's age. Hemorrhage: None. Cerebral parenchyma: Mild atrophy. Minimal white matter hypodensity consistent microvascular changes. Midline shift: None. Brainstem/Cerebellum: Normal. Calvarium: Normal. Visualized Paranasal sinuses/Mastoids: Clear. Soft Tissues: Unremarkable. Enhancement: Normal. CTA Neck W: Common Carotid: Right: No dissection, occlusion or significant stenosis. Left: No dissection, occlusion or significant stenosis. External Carotid: Right: No occlusion or significant stenosis. Left: No occlusion or significant stenosis. Internal Carotid: Right: Minimal plaque. No dissection, occlusion or significant stenosis. Left: Mild plaque. No dissection, occlusion or significant stenosis. Vertebral Artery: Right: Diminutive but patent throughout. No dissection, occlusion or significant stenosis. Left: No dissection, occlusion or significant stenosis. Subclavian arteries: Patent. Aortic Arch: MinimalAtherosclerotic changes. Pulmonary arteries: Unremarkable where visualized. Lung Apices: Normal. Bones: Degenerative changes of the cervical spine. Soft Tissues: Normal. Pacemaker noted. CTA Brain W: Internal Carotid Arteries: Petrous: Normal. Cavernous: Normal. Cerebral: Normal. Anterior Cerebral Arteries: Right: No aneurysm, occlusion or significant stenosis. Left: No aneurysm, occlusion or significant stenosis. Middle Cerebral Arteries: Right: No aneurysm, occlusion or significant stenosis. Left: No aneurysm, occlusion or significant stenosis. Posterior cerebral Arteries: Right: Diminutive P1 segment, right [employer] supplied by posterior communicating artery. No aneurysm, occlusion or significant stenosis. Left: No aneurysm, occlusion or significant stenosis. Vertebral Arteries: Right: Mild plaque at the level of the occipital condyles 50% stenosis. No aneurysm, occlusion or significant stenosis. Left: No aneurysm, occlusion or significant stenosis. Basilar Artery: No aneurysm, occlusion or significant stenosis. IMPRESSION: 1. CTA brain: No significant vascular stenosis or evidence of aneurysm. No evidence of dissection. 2. Unremarkable CT Head. 3. Neck CTA: No significant vascular stenosis or dissection. Report Digitally Signed by Heidi Umanzor on 09/30/2022 09:31 AM EDT Social History Type Status Start Date End Date Code Code Syst em Smoking History Never smoker (Never Smoked) 753964821 SNOMED CT Sex Male Vital Signs Vital Sign Value Unit [place] Value [place] Unit Date/Time Recent/Initial? Code Code System Body Mass Index 31.57 kg/m2 09/29/2022 20:38 Initial 89534 -5 LOINC Systolic Blood Pressure 132 mm[Hg] 09/30/2022 00:46 Most Recent 8480- 6 LOINC Diastolic Blood Pressure 74 mm[Hg] 09/30/2022 00:46 Most Recent 8462- 4 LOINC Systolic Blood Pressure 140 mm[Hg] 09/29/2022 20:38 Initial 8480- 6 LOINC Diastolic Blood Pressure 81 mm[Hg] 09/29/2022 20:38 Initial 8462- 4 LOINC Body Surface Area 2.22 m2 09/29/2022 20:38 Initial 3140- 1 LOINC Height 177.800 0 cm 70.00 in 09/29/2022 20:38 Initial 8302- 2 LOINC O2 Saturation 96 % 2022 00:46 Most Recent 51014 -5 LOINC O2 Saturation 99 % 2022 21:00 Initial 27777 -5 LOINC Pulse 84.0 /min 09/30/2022 00:46 Most Recent 8867- 4 LOINC Pulse 76.0 /min 09/29/2022 20:38 Initial 8867- 4 LOINC Respiration 18 /min 10/01/19 23 00:46 Most Recent 9279- 1 LOINC Respiration 16 /min 09/30/19 23 20:38 Initial 9279- 1 LOINC Temperature 36.7 Aaliyah 98.1 F 10/01/19 23 00:46 Most Recent 8310- 5 LOINC Temperature 36.9 Aaliyah 98.4 F 09/30/19 23 20:38 Initial 8310- 5 LOINC Weight 99.79 kg 220.00 lbs 09/29/2022 20:38 Initial 77267 -7 [facility] Medications Medication Start Date End Date Route Frequency Dose Code Code System Medication Instructions Home Meds Allopurinol 100MG Oral Tablet 05/31/2018 08/16/2023 ORAL DAILY 100 MILLIGRAMS 342062 RxNorm TAKE 100 MILLIGRAMS ORAL DAILY Aspir Low 81MG Oral Tablet, Enteric Coated 05/31/2018 Unknown ORAL DAILY 81 MILLIGRAMS 6867616 RxNorm TAKE 81 MILLIGRAMS ORAL DAILY Atorvastatin Calcium 40MG Oral Tablet 05/31/2018 08/16/2023 ORAL DAILY 40 MILLIGRAMS 479506 RxNorm TAKE 40 MILLIGRAMS ORAL DAILY EPIPEN [...] Tablet 05/31/2018 08/16/2023 ORAL DAILY 5 MILLIGRAMS 317684 RxNorm TAKE 5 MILLIGRAMS ORAL DAILY Torsemide 20MG Oral Tablet 08/16/2023 12/10/2023 ORAL DAILY 1 TABLET 884008 RxNorm TAKE 1 TABLET ORAL DAILY Assessment [...] SPECIFIED WHETHER PRIMARY OR SECONDARY, INVOLVIN active 227234866 SNOMED-C T Allergies and Adverse Reactions Allergy Substance Reaction Severity Start Date Concern Status Code Code Syste m BEE VENOM Anaphylaxis (SNOMED-CT: 51494824) Moderate Active Plan of Treatment Pre-Op Covid-19 Testing 02/18/2020 X-RAY 02/25/2023 NM MPI STR/RST 09/29/2022 X-RAY 04/02/2021 Encounters Encounter Diagnosis Start Date Code Code Sys tem Dizziness and giddiness 09/29/2022 SNOM ED-CT Personal Care Team Section Performer Name Performer Role Active Date Inactive Da te
--- OUTSIDE RECORDS SUMMARY | 2023-12-30 15:20 | XMS_ITS ---
Author Organization Unknown Address [address] [place] [phone] Phone Care Team Providers Care Hat Maker Name Role Phone INDU Manuel Attending Unavailable ELADIO Altamirano Primary Unavailable Social History Type Status Start Date End Date Code Code Syst em Smoking History Never smoker (Never Smoked) 969311089 SNOMED CT Sex Male Medications Medication Start Date End Date Route Frequency Dose Code Code System Medication Instructions Home Meds Allopurinol 100MG Oral Tablet 05/31/2018 08/16/2023 ORAL DAILY 100 MILLIGRAMS 713412 RxNorm TAKE 100 MILLIGRAMS ORAL DAILY Aspir Low 81MG Oral Tablet, Enteric Coated 05/31/2018 Unknown ORAL DAILY 81 MILLIGRAMS 9389579 RxNorm TAKE 81 MILLIGRAMS ORAL DAILY Atorvastatin Calcium 40MG Oral Tablet 05/31/2018 08/16/2023 ORAL DAILY 40 MILLIGRAMS 447182 RxNorm TAKE 40 MILLIGRAMS ORAL DAILY EPIPEN [...] Tablet 08/16/2023 12/10/2023 ORAL DAILY 1 TABLET 267159 RxNorm TAKE 1 TABLET ORAL DAILY Assessment [...] SPECIFIED WHETHER PRIMARY OR SECONDARY, INVOLVIN active 983648347 SNOMED-C T Allergies and Adverse Reactions Allergy Substance Reaction Severity Start Date Concern Status Code Code Syste m BEE VENOM Anaphylaxis (SNOMED-CT: 73972103) Moderate Active Plan of Treatment Pre-Op Covid-19 Testing 02/18/2020 X-RAY 02/25/2023 NM MPI STR/RST 09/29/2022 X-RAY 04/02/2021 Encounters Encounter Diagnosis Start Date Code Code Sys tem 10/28/2022 [id number] SNOMED-CT Personal Care Team Section Performer Name Performer Role Active Date Inactive Da te
--- OUTSIDE RECORDS SUMMARY | 2023-12-30 15:20 | XMS_ITS ---
Author Organization Unknown Address [address] [place] [phone] Phone Care Team Providers Care Digital Editor Name Role Phone INDU Manuel Attending Unavailable ELADIO Altamirano Primary Unavailable Social History Type Status Start Date End Date Code Code Syst em Smoking History Never smoker (Never Smoked) 769085836 SNOMED CT Sex Male Medications Medication Start Date End Date Route Frequency Dose Code Code System Medication Instructions Home Meds Allopurinol 100MG Oral Tablet 05/31/2018 08/16/2023 ORAL DAILY 100 MILLIGRAMS 199279 RxNorm TAKE 100 MILLIGRAMS ORAL DAILY Aspir Low 81MG Oral Tablet, Enteric Coated 05/31/2018 Unknown ORAL DAILY 81 MILLIGRAMS 4716565 RxNorm TAKE 81 MILLIGRAMS ORAL DAILY Atorvastatin Calcium 40MG Oral Tablet 05/31/2018 08/16/2023 ORAL DAILY 40 MILLIGRAMS 301712 RxNorm TAKE 40 MILLIGRAMS ORAL DAILY EPIPEN [...] Tablet 08/16/2023 12/10/2023 ORAL DAILY 1 TABLET 518618 RxNorm TAKE 1 TABLET ORAL DAILY Assessment [...] SPECIFIED WHETHER PRIMARY OR SECONDARY, INVOLVIN active 629366973 SNOMED-C T Allergies and Adverse Reactions Allergy Substance Reaction Severity Start Date Concern Status Code Code Syste m BEE VENOM Anaphylaxis (SNOMED-CT: 14595495) Moderate Active Plan of Treatment Pre-Op Covid-19 Testing 02/18/2020 X-RAY 02/25/2023 NM MPI STR/RST 09/29/2022 X-RAY 04/02/2021 Encounters Encounter Diagnosis Start Date Code Code Sys tem Atherosclerotic heart diseas e of [place] coronary artery without angina pectoris 01/28/2023 SNOMED-CT Personal Care Team Section Performer Name Performer Role Active Date Inactive Da te
--- OUTSIDE RECORDS SUMMARY | 2023-12-30 15:21 | XMS_ITS ---
Author Organization Unknown Address [address] [place] [phone] Phone Care Team Providers Care Mammography Tech Name Role Phone JASON Altamirano Attending Unavailable ELADIO Altamirano Primary Unavailable Results CBC W/ DIFFERENTIAL* - Colle ct Date/Time: 04/26/2023 09:59 [facility] ID: [id number] - [id number] [address] [place], [place], [address] LOINC: 54388-6 Test Value Unit Reference Range Code Code System Flag WBC 6.54 th/cmm L=5.00 H=10.00 6690-2 LOINC NEUT % 44.5 % L=40.0 H=80.0 LYMPH % 41.4 % L=10.0 H=50.0 MONO % 10.6 % L=2.0 H=12.0 07690-9 LOINC EOS % 2.6 % L=0.0 H=8.0 BASO % 0.3 % L=0.0 H=3.0 IG % 0.6 % L=0.0 H=1.1 2514-8 LOINC NRBC % 0.0 % L=0.0 H=0.0 82671-1 LOINC NEUT abs count 2.9 th/cmm L=1.6 H=8.4 751-8 LOINC LYMPH abs count 2.7 th/cmm L=1.5 H=4.0 731-0 LOINC MONO abs count 0.7 th/cmm L=0.2 H=1.0 742-7 LOINC EOS abs count 0.2 th/cmm L=0.0 H=0.5 711-2 LOINC BASO abs count 0.0 th/cmm L=0.0 H=0.2 704-7 LOINC IG abs count 0.0 th/cmm L=0.0 H=0.1 26097-0 LOINC NRBC abs count 0.0 mil/cmm L=0.0 H=0.0 73949-2 LOINC RBC 5.08 mil/cmm L=4.30 H=6.20 789-8 LOINC HEMOGLOBIN 16.5 gm/dL L=13.0 H=17.0 718-7 LOINC HEMATOCRIT 48 % L=45 H=52 4544-3 LOINC MCV 94 fL L=82 H=92 787-2 LOINC H MCH 32.5 pg L=27.0 H=31.0 785-6 LOINC H MCHC 34.5 % L=32.0 H=36.0 786-4 LOINC RDW-SD 43.9 fL L=39.0 H=49.0 788-0 LOINC PLATELET COUNT 169 th/cmm L=150 H=450 777-3 LOINC C REACTIVE PROTEIN HIGH SENS ITIVITY* - Collect Date/Time: 04/26/2023 09:59 [facility] ID: [id number] [address] [place] [address], [address] LOINC: 45785-9 Test Value Unit Reference Range Code Code System Flag CRP-HIGH SENS. 2.53 mg/L L=0.00 H=3.00 66584-3 LOINC CRP-HIGH SENS 0.25 mg/dL L=0.00 H=0.30 83703-7 LOINC SED RATE* - Collect Date/Ugrvinder e: 04/26/2023 09:59 [facility] ID: [id number] [address] [place] [address], [address] LOINC: 4537-7 Test Value Unit Reference Range Code Code System Flag SED. RATE < 1 mm/hr L=0 H=20 4537-7 LOINC Social History Type Status Start Date End Date Code Code Syst em Smoking History Never smoker (Never Smoked) 386645447 SNOMED CT Sex Male Medications Medication Start Date End Date Route Frequency Dose Code Code System Medication Instructions Home Meds Allopurinol 100MG Oral Tablet 05/31/2018 08/16/2023 ORAL DAILY 100 MILLIGRAMS 19720531 RxNorm TAKE 100 MILLIGRAMS ORAL DAILY Aspir Low 81MG Oral Tablet, Enteric Coated 05/31/2018 Unknown ORAL DAILY 81 MILLIGRAMS 1177470 RxNorm TAKE 81 MILLIGRAMS ORAL DAILY Atorvastatin Calcium 40MG Oral Tablet 05/31/2018 08/16/2023 ORAL DAILY 40 MILLIGRAMS 926662 RxNorm TAKE 40 MILLIGRAMS ORAL DAILY EPIPEN [...] SPECIFIED WHETHER PRIMARY OR SECONDARY, INVOLVIN active 871254508 SNOMED-C T Allergies and Adverse Reactions Allergy Substance Reaction Severity Start Date Concern Status Code Code Syste m BEE VENOM Anaphylaxis (SNOMED-CT: 27811788) Moderate Active Plan of Treatment Pre-Op Covid-19 Testing 02/18/2020 X-RAY 02/25/2023 NM MPI STR/RST 09/29/2022 X-RAY 04/02/2021 Encounters Encounter Diagnosis Start Date Code Code Sys tem Hip joint prosthesis present 04/26/2023 621415004 SNOMED-CT Personal Care Team Section Performer Name Performer Role Active Date Inactive Da te
--- OUTSIDE RECORDS SUMMARY | 2023-12-30 15:21 | XMS_ITS ---
Author Organization Unknown Address [address] [place] [address] [phone] Phone Care Team Providers Care Feather Edger Name Role Phone INDU Manuel Attending Unavailable ELADIO Altamirano Primary Unavailable Social History Type Status Start Date End Date Code Code Syst em Smoking History Never smoker (Never Smoked) [id number] SNOMED CT Sex Male Medications Medication Start Date End Date Route Frequency Dose Code Code System Medication Instructions Home Meds Allopurinol 100MG Oral Tablet 05/31/2018 08/16/2023 ORAL DAILY 100 MILLIGRAMS 839518 RxNorm TAKE 100 MILLIGRAMS ORAL DAILY Aspir Low 81MG Oral Tablet, Enteric Coated 05/31/2018 Unknown ORAL DAILY 81 MILLIGRAMS 9352594 RxNorm TAKE 81 MILLIGRAMS ORAL DAILY Atorvastatin Calcium 40MG Oral Tablet 05/31/2018 08/16/2023 ORAL DAILY 40 MILLIGRAMS 069348 RxNorm TAKE 40 MILLIGRAMS ORAL DAILY EPIPEN [...] Tablet 08/16/2023 12/10/2023 ORAL DAILY 1 TABLET 513200 RxNorm TAKE 1 TABLET ORAL DAILY Assessment [...] SPECIFIED WHETHER PRIMARY OR SECONDARY, INVOLVIN active 894843141 SNOMED-C T Allergies and Adverse Reactions Allergy Substance Reaction Severity Start Date Concern Status Code Code Syste m BEE VENOM Anaphylaxis (SNOMED-CT: 79291432) Moderate Active Plan of Treatment Pre-Op Covid-19 Testing 02/18/2020 X-RAY 02/25/2023 NM MPI STR/RST 09/29/2022 X-RAY 04/02/2021 Encounters Encounter Diagnosis Start Date Code Code Sys tem 07/28/2023 [id number] SNOMED-CT Personal Care Team Section Performer Name Performer Role Active Date Inactive Da te
--- OUTSIDE RECORDS SUMMARY | 2023-12-30 15:21 | XMS_ITS ---
Author Organization Unknown Address [address] [place] [address] [phone] Phone Care Team Providers Care Radio Equipment Repairer Name Role Phone INDU Manuel Attending Unavailable ELADIO Altamirano Primary Unavailable Social History Type Status Start Date End Date Code Code Syst em Smoking History Never smoker (Never Smoked) 096045262 SNOMED CT Sex Male Medications Medication Start Date End Date Route Frequency Dose Code Code System Medication Instructions Home Meds Allopurinol 100MG Oral Tablet 05/31/2018 08/16/2023 ORAL DAILY 100 MILLIGRAMS 664557 RxNorm TAKE 100 MILLIGRAMS ORAL DAILY Aspir Low 81MG Oral Tablet, Enteric Coated 05/31/2018 Unknown ORAL DAILY 81 MILLIGRAMS 5537492 RxNorm TAKE 81 MILLIGRAMS ORAL DAILY Atorvastatin Calcium 40MG Oral Tablet 05/31/2018 08/16/2023 ORAL DAILY 40 MILLIGRAMS 486956 RxNorm TAKE 40 MILLIGRAMS ORAL DAILY EPIPEN [...] Tablet 08/16/2023 12/10/2023 ORAL DAILY 1 TABLET 155668 RxNorm TAKE 1 TABLET ORAL DAILY Assessment [...] SPECIFIED WHETHER PRIMARY OR SECONDARY, INVOLVIN active 180652349 SNOMED-C T Allergies and Adverse Reactions Allergy Substance Reaction Severity Start Date Concern Status Code Code Syste m BEE VENOM Anaphylaxis (SNOMED-CT: 13707417) Moderate Active Plan of Treatment Pre-Op Covid-19 Testing 02/18/2020 X-RAY 02/25/2023 NM MPI STR/RST 09/29/2022 X-RAY 04/02/2021 Encounters Encounter Diagnosis Start Date Code Code Sys tem Atherosclerotic heart diseas e of [place] coronary artery without angina pectoris 03/10/2023 SNOMED-CT Personal Care Team Section Performer Name Performer Role Active Date Inactive Da te
--- OUTSIDE RECORDS SUMMARY | 2023-12-30 15:21 | XMS_ITS ---
Author Organization Unknown Address [address] [place] [address] [phone] Phone Care Team Providers Care Business Programmer Name Role Phone DONNA ROLANDO Flores Attending Unavailable ELADIO Altamirano Primary Unavailable Social History Type Status Start Date End Date Code Code Syst em Smoking History Never smoker (Never Smoked) 289523397 SNOMED CT Sex Male Medications Medication Start Date End Date Route Frequency Dose Code Code System Medication Instructions Home Meds Allopurinol 100MG Oral Tablet 05/31/2018 08/16/2023 ORAL DAILY 100 MILLIGRAMS 042719 RxNorm TAKE 100 MILLIGRAMS ORAL DAILY Aspir Low 81MG Oral Tablet, Enteric Coated 05/31/2018 Unknown ORAL DAILY 81 MILLIGRAMS 3686821 RxNorm TAKE 81 MILLIGRAMS ORAL DAILY Atorvastatin Calcium 40MG Oral Tablet 05/31/2018 08/16/2023 ORAL DAILY 40 MILLIGRAMS 341032 RxNorm TAKE 40 MILLIGRAMS ORAL DAILY EPIPEN [...] Tablet 08/16/2023 12/10/2023 ORAL DAILY 1 TABLET 445199 RxNorm TAKE 1 TABLET ORAL DAILY Assessment [...] SPECIFIED WHETHER PRIMARY OR SECONDARY, INVOLVIN active 488283069 SNOMED-C T Allergies and Adverse Reactions Allergy Substance Reaction Severity Start Date Concern Status Code Code Syste m BEE VENOM Anaphylaxis (SNOMED-CT: 34634442) Moderate Active Plan of Treatment Pre-Op Covid-19 Testing 02/18/2020 X-RAY 02/25/2023 NM MPI STR/RST 09/29/2022 X-RAY 04/02/2021 Encounters Encounter Diagnosis Start Date Code Code Sys tem Idiopathic osteoarthritis 04/20/2023 904404044 SN OMED-CT Personal Care Team Section Performer Name Performer Role Active Date Inactive Da te
--- OUTSIDE RECORDS SUMMARY | 2023-12-30 15:22 | XMS_ITS ---
Author Organization Unknown Address [address] [place] [address] [phone] Phone Care Team Providers Care Solar Maintenance Technician Name Role Phone INDU THOMPSON Mar Attending Unavailable ELADIO Altamirano Primary Unavailable Social History Type Status Start Date End Date Code Code Syst em Smoking History Never smoker (Never Smoked) 181013503 SNOMED CT Sex Male Medications Medication Start Date End Date Route Frequency Dose Code Code System Medication Instructions Home Meds Aspir Low 81MG Oral Tablet, Enteric Coated 05/31/2018 Unknown ORAL DAILY 81 MILLIGRAMS 2418594 RxNorm TAKE 81 MILLIGRAMS ORAL DAILY EPIPEN 0.9MG/0.3ML ;NO STREN MULITPL 05/31/2018 Unknown INTRAMUS CULAR NEEDED 1 RxNorm INJECT 1 INTRAMUSCULAR NEEDED GLUCOSAMINE TABLET 05/31/2018 Unknown ORAL DAILY 1 TABLET RxNorm TAKE 1 TABLE T ORAL DAILY Torsemide 20MG Oral Tablet 08/16/2023 12/10/19 24 ORAL DAILY 1 TABLET 320006 RxNorm TAKE 1 TABLET ORAL DAILY Assessment [...] SPECIFIED WHETHER PRIMARY OR SECONDARY, INVOLVIN active 052050323 SNOMED-C T Allergies and Adverse Reactions Allergy Substance Reaction Severity Start Date Concern Status Code Code Systcecil m BEE VENOM Anaphylaxis (SNOMED-CT: 07276764) Moderate Active Plan of Treatment Pre-Op Covid-19 Testing 02/18/2020 X-RAY 02/25/2023 NM MPI STR/RST 09/29/2022 X-RAY 04/02/2021 Encounters Encounter Diagnosis Start Date Code Code Sys tem 08/19/2023 [id number] SNOMED-CT Personal Care Team Section Performer Name Performer Role Active Date Inactive Da te
--- OUTSIDE RECORDS SUMMARY | 2023-12-30 15:22 | XMS_ITS ---
Author Organization Unknown Address [address] [place] [address] [phone] Phone Care Team Providers Care Accounts Payable Manager Name Role Phone JONO MOREIRA Attending Unavailable ELADIO Altamirano Primary Unavailable Social History Type Status Start Date End Date Code Code Syst em Smoking History Never smoker (Never Smoked) 199869778 SNOMED CT Sex Male Medications Medication Start Date End Date Route Frequency Dose Code Code System Medication Instructions Home Meds Aspir Low 81MG Oral Tablet, Enteric Coated 05/31/2018 Unknown ORAL DAILY 81 MILLIGRAMS 3977824 RxNorm TAKE 81 MILLIGRAMS ORAL DAILY EPIPEN 0.9MG/0.3ML ;NO STREN MULITPL 05/31/2018 Unknown INTRAMUS CULAR NEEDED 1 RxNorm INJECT 1 INTRAMUSCULAR NEEDED GLUCOSAMINE TABLET 05/31/2018 Unknown ORAL DAILY 1 TABLET RxNorm TAKE 1 TABLE T ORAL DAILY Torsemide 20MG Oral Tablet 08/16/2023 12/10/19 24 ORAL DAILY 1 TABLET 897169 RxNorm TAKE 1 TABLET ORAL DAILY Assessment [...] SPECIFIED WHETHER PRIMARY OR SECONDARY, INVOLVIN active 625376024 SNOMED-C T Allergies and Adverse Reactions Allergy Substance Reaction Severity Start Date Concern Status Code Code Randy m BEE VENOM Anaphylaxis (SNOMED-CT: 53134143) Moderate Active Plan of Treatment Pre-Op Covid-19 Testing 02/18/2020 X-RAY 02/25/2023 NM MPI STR/RST 09/29/2022 X-RAY 04/02/2021 Encounters Encounter Diagnosis Start Date Code Code Sys tem Hypertensive heart disease w ith congestive heart failure 09/14/2023 2879271 SNOMED-CT Personal Care Team Section Performer Name Performer Role Active Date Inactive Da te
--- OUTSIDE RECORDS SUMMARY | 2023-12-30 15:22 | XMS_ITS ---
Author Organization Unknown Address [address] [place] [address] [phone] Phone Care Team Providers Care Banquet Lead Name Role Phone INDU Manuel Attending Unavailable ELADIO Altamirano Primary Unavailable Results BASIC METABOLIC PANEL (BMP) - Collect Date/Time: 09/08/2023 09:59 [facility] ID: [id number] [address] [place], [place], [address] LOINC: 42029-3 Test Value Unit Reference Range Code Code System Flag GLUCOSE 91 mg/dL L=70 H=116 2345-7 LOINC BUN 21 mg/dL L=6 H=25 3094-0 LOINC CREATININE 1.22 mg/dL L=0.67 H=1.17 2160-0 LOINC H SODIUM SERUM 140 mmol/L L=136 H=145 2951-2 LOINC POTASSIUM SERUM 4.5 mmol/L L=3.4 H=5.2 2823-3 LOINC CHLORIDE SERUM 105 mmol/L L=96 H=110 2075-0 LOINC CARBON DIOXIDE (CO2) 28 mmol/L L=22 H=34 2028-9 LOINC ANION GAP 6.8 mmol/L 55265-5 LOINC CALCIUM SERUM 9.2 mg/dL L=8.2 H=10.2 94866-0 LOINC AGE 78 years eGFR (non-Afr.Amer.) 58 mL/min 57383-6 LOINC eGFR (Afr-Malaysian) 70 mL/min 28923-3 LOINC Social History Type Status Start Date End Date Code Code Syst em Smoking History Never smoker (Never Smoked) 881477496 SNOMED CT Sex Male Medications Medication Start Date End Date Route Frequency Dose Code Code System Medication Instructions Home Meds Aspir Low 81MG Oral Tablet, Enteric Coated 05/31/2018 Unknown ORAL DAILY 81 MILLIGRAMS 8720633 RxNorm TAKE 81 MILLIGRAMS ORAL DAILY EPIPEN 0.9MG/0.3ML ;NO STREN MULITPL 05/31/2018 Unknown INTRAMUS CULAR NEEDED 1 RxNorm INJECT 1 INTRAMUSCULAR NEEDED GLUCOSAMINE TABLET 05/31/2018 Unknown ORAL DAILY 1 TABLET RxNorm TAKE 1 TABLE T ORAL DAILY Torsemide 20MG Oral Tablet 08/16/2023 12/10/19 24 ORAL DAILY 1 TABLET 710976 RxNorm TAKE 1 TABLET ORAL DAILY Assessment [...] SPECIFIED WHETHER PRIMARY OR SECONDARY, INVOLVIN active 363266720 SNOMED-C T Allergies and Adverse Reactions Allergy Substance Reaction Severity Start Date Concern Status Code Code Syste m BEE VENOM Anaphylaxis (SNOMED-CT: 11354645) Moderate Active Plan of Treatment Pre-Op Covid-19 Testing 02/18/2020 X-RAY 02/25/2023 NM MPI STR/RST 09/29/2022 X-RAY 04/02/2021 Encounters Encounter Diagnosis Start Date Code Code Sys tem 09/08/2023 [id number] SNOMED-CT Personal Care Team Section Performer Name Performer Role Active Date Inactive Gordo magaña
--- OUTSIDE RECORDS SUMMARY | 2023-12-30 15:22 | XMS_ITS ---
Author Organization Unknown Address [address] [place] [address] [phone] Phone Care Team Providers Care Surface Miner Name Role Phone AMANDA OCHOA Registered Nurse Unavailable JAMEL Braswell Attending Unavailable SANDEEP Brouss[facility] Unavailable ELADIO Altamirano Primary Unavailable UNLISTED PROVIDER - REQUESTED Xhandoff Un available Results TROPONIN HIGH SENSITIVITY* - Collect Date/Time: 08/16/2023 10:30 [facility] ID: [id number] [address] [place] [address], [address] LOINC: 56781-7 Test Value Unit Reference Range Code Code System Flag TROPONIN HS 26.9 pg/mL L=0.0 H=60.4 Specimen seq. RANDOM CBC W/ DIFFERENTIAL* - Colle ct Date/Time: 08/16/2023 10:30 [facility] ID: [id number] [address] [place] [address], [address] LOINC: 39261-7 Test Value Unit Reference Range Code Code System Flag WBC 4.92 th/cmm L=5.00 H=10.00 6690-2 LOINC L NEUT % 45.2 % L=40.0 H=80.0 LYMPH % 41.1 % L=10.0 H=50.0 MONO % 9.8 % L=2.0 H=12.0 37595-8 LOINC EOS % 3.3 % L=0.0 H=8.0 BASO % 0.2 % L=0.0 H=3.0 IG % 0.4 % L=0.0 H=1.1 4594-8 LOINC NRBC % 0.0 % L=0.0 H=0.0 27042-9 LOINC NEUT abs count 2.2 th/cmm L=1.6 H=8.4 751-8 LOINC LYMPH abs count 2.0 th/cmm L=1.5 H=4.0 731-0 LOINC MONO abs count 0.5 th/cmm L=0.2 H=1.0 742-7 LOINC EOS abs count 0.2 th/cmm L=0.0 H=0.5 711-2 LOINC BASO abs count 0.0 th/cmm L=0.0 H=0.2 704-7 LOINC IG abs count 0.0 th/cmm L=0.0 H=0.1 76837-2 LOINC NRBC abs count 0.0 mil/cmm L=0.0 H=0.0 27882-1 LOINC RBC 4.88 mil/cmm L=4.30 H=6.20 789-8 LOINC HEMOGLOBIN 16.0 gm/dL L=13.0 H=17.0 718-7 LOINC HEMATOCRIT 46 % L=45 H=52 4544-3 LOINC MCV 94 fL L=82 H=92 787-2 LOINC H MCH 32.8 pg L=27.0 H=31.0 785-6 LOINC H MCHC 34.9 % L=32.0 H=36.0 786-4 LOINC RDW-SD 44.3 fL L=39.0 H=49.0 788-0 LOINC PLATELET COUNT 150 th/cmm L=150 H=450 777-3 LOINC BNP (PRO-B NATRIURETIC PEPTI DE) - Collect Date/Time: 08/16/2023 10:30 [facility] ID: [id number] [address] [place], [place], [address] LOINC: 53645-8 Test Value Unit Reference Range Code Code System Flag NT-proBNP 2089.0 pg/mL L=0.0 H=450 35739-2 LOINC H BASIC METABOLIC PANEL (BMP) - Collect Date/Time: 08/16/2023 10:30 [facility] ID: [id number] [address] [place], [place], [address] LOINC: 62142-5 Test Value Unit Reference Range Code Code System Flag GLUCOSE 97 mg/dL L=70 H=116 2345-7 LOINC BUN 20 mg/dL L=6 H=25 3094-0 LOINC CREATININE 1.34 mg/dL L=0.67 H=1.17 2160-0 LOINC H SODIUM SERUM 141 mmol/L L=136 H=145 2951-2 LOINC POTASSIUM SERUM 3.4 mmol/L L=3.4 H=5.2 2823-3 LOINC CHLORIDE SERUM 105 mmol/L L=96 H=110 2075-0 LOINC CARBON DIOXIDE (CO2) 29 mmol/L L=22 H=34 2028-9 LOINC ANION GAP 7.2 mmol/L 11708-9 LOINC CALCIUM SERUM 9.1 mg/dL L=8.2 H=10.2 75179-2 LOINC AGE 78 years eGFR (non-Afr.Amer.) 52 mL/min 78823-7 LOINC eGFR (Afr-Japanese) 63 mL/min 91446-4 LOINC XR CHEST 2V PA AND LATERAL - Completed: 08/16/2023 10:56 LOINC: [facility] [place], [place] [address] PACS MULTIPLE COIL WINDER REPORT Patient Name: ELVIA BEAUCHAMP MRN: Sex: : Age: [id number] M 1945 78 Account: Accession: Admit: StayType: [id number] 08/16/2023 E/R Ordered: Order ID: Submitted: Ordering Provider: 08/16/2023 10:44 [id number] KD BUTLER Completed: Technologist: Resulted: 08/16/2023 10:56 KVK 08/16/2023 10:58 Study Description: XR CHEST 2V PA AND LATERAL Study Reason: SOB TECHNIQUE: 2D Digital imaging Number of views: 3 Views COMPARISON: None 19 December 2021 FINDINGS: Leads overlie the chest. LUNGS: Clear. PLEURA: No pleural abnormality seen. HEART: Mildly enlarged. Pacemaker is now present. AORTA: Normal diameter. BONES: Unremarkable for age. SOFT TISSUES: Unremarkable. IMPRESSION: No acute findings. Report Digitally Signed by Heidi Umanzor on 08/16/2023 10:58 AM EDT Social History Type Status Start Date End Date Code Code Syst em Smoking History Never smoker (Never Smoked) 549983151 SNOMED CT Sex Male Vital Signs Vital Sign Value Unit [place] Value [place] Unit Date/Time Recent/Initial? Code Code System Body Mass Index 29.81 kg/m2 08/16/2023 10:30 Initial 53346 -5 LOINC Systolic Blood Pressure 123 mm[Hg] 08/16/2023 13:25 Most Recent 8480- 6 LOINC Diastolic Blood Pressure 86 mm[Hg] 08/16/2023 13:25 Most Recent 8462- 4 LOINC Systolic Blood Pressure 131 mm[Hg] 08/16/2023 10:30 Initial 8480- 6 LOINC Diastolic Blood Pressure 90 mm[Hg] 08/16/2023 10:30 Initial 8462- 4 LOINC Body Surface Area 2.24 m2 08/16/2023 10:30 Initial 3140- 1 LOINC Height 182.245 0 cm 71.75 in 08/16/2023 10:30 Initial 8302- 2 LOINC O2 Saturation 96 % 2023 13:25 Most Recent 05323 -5 LOINC O2 Saturation 99 % 2023 10:30 Initial 05231 -5 LOINC Pulse 78.0 /min 08/16/2023 13:25 Most Recent 8867- 4 LOINC Pulse 78.0 /min 08/16/2023 10:30 Initial 8867- 4 LOINC Respiration 16 /min 08/16/19 13:25 Most Recent 9279- 1 [facility] Respiration 18 /min 08/16/19 10:30 Initial 9279- 1 [facility] Temperature 36.4 Aaliyah 97.5 F 08/16/19 10:30 Initial 8310- 5 [facility] Weight 99.00 kg 218.26 lbs 08/16/2023 10:30 Initial 92269 -7 [facility] Medications Medication Start Date End Date Route Frequency Dose Code Code System Medication Instructions Home Meds Allopurinol 100MG Oral Tablet 05/31/2018 08/16/2023 ORAL DAILY 100 MILLIGRAMS 901161 RxNorm TAKE 100 MILLIGRAMS ORAL DAILY Aspir Low 81MG Oral Tablet, Enteric Coated 05/31/2018 Unknown ORAL DAILY 81 MILLIGRAMS 9401318 RxNorm TAKE 81 MILLIGRAMS ORAL DAILY Atorvastatin Calcium 40MG Oral Tablet 05/31/2018 08/16/2023 ORAL DAILY 40 MILLIGRAMS 709011 RxNorm TAKE 40 MILLIGRAMS ORAL DAILY EPIPEN [...] SPECIFIED WHETHER PRIMARY OR SECONDARY, INVOLVIN active 221413620 SNOMED-C T Allergies and Adverse Reactions Allergy Substance Reaction Severity Start Date Concern Status Code Code Syste m BEE VENOM Anaphylaxis (SNOMED-CT: 40914361) Moderate Active Plan of Treatment Pre-Op Covid-19 Testing 02/18/2020 X-RAY 02/25/2023 NM MPI STR/RST 09/29/2022 X-RAY 04/02/2021 Encounters Encounter Diagnosis Start Date Code Code Sys tem Hypertensive heart disease with heart failure 08/16/19 SNOMED-CT Personal Care Team Section Performer Name Performer Role Active Date Inactive Da te
--- OUTSIDE RECORDS SUMMARY | 2023-12-30 15:23 | XMS_ITS ---
Author Organization Unknown Address [address] [place] [address] [phone] Phone Care Team Providers Care Assistant Professor Of Criminal Justice Name Role Phone INDU THOMPSON Mar Attending Unavailable ELADIO Altamirano Primary Unavailable Social History Type Status Start Date End Date Code Code Syst em Smoking History Never smoker (Never Smoked) 301484831 SNOMED CT Sex Male Medications Medication Start Date End Date Route Frequency Dose Code Code System Medication Instructions Home Meds Aspir Low 81MG Oral Tablet, Enteric Coated 05/31/2018 Unknown ORAL DAILY 81 MILLIGRAMS 8455274 RxNorm TAKE 81 MILLIGRAMS ORAL DAILY EPIPEN 0.9MG/0.3ML ;NO STREN MULITPL 05/31/2018 Unknown INTRAMUS CULAR NEEDED 1 RxNorm INJECT 1 INTRAMUSCULAR NEEDED GLUCOSAMINE TABLET 05/31/2018 Unknown ORAL DAILY 1 TABLET RxNorm TAKE 1 TABLE T ORAL DAILY Torsemide 20MG Oral Tablet 08/16/2023 12/10/19 24 ORAL DAILY 1 TABLET 946960 RxNorm TAKE 1 TABLET ORAL DAILY Assessment [...] SPECIFIED WHETHER PRIMARY OR SECONDARY, INVOLVIN active 392202417 SNOMED-C T Allergies and Adverse Reactions Allergy Substance Reaction Severity Start Date Concern Status Code Code Systcecil m BEE VENOM Anaphylaxis (SNOMED-CT: 28175601) Moderate Active Plan of Treatment Pre-Op Covid-19 Testing 02/18/2020 X-RAY 02/25/2023 NM MPI STR/RST 09/29/2022 X-RAY 04/02/2021 Encounters Encounter Diagnosis Start Date Code Code Sys tem 10/13/2023 [id number] SNOMED-CT Personal Care Team Section Performer Name Performer Role Active Date Inactive Da te
--- OUTSIDE RECORDS SUMMARY | 2023-12-30 15:23 | XMS_ITS ---
Author Organization Unknown Address [address] [place], [place] [phone] Phone Care Team Providers Care Centrifugal Casting Machine Operator Name Role Phone JONO VENTURAIA Attending Unavailable ELADIO Altamirano Primary Unavailable Results BASIC METABOLIC PANEL (BMP) - Collect Date/Time: 10/04/2023 09:37 [facility] ID: [id number] [address] [place], [place], [address] LOINC: 15551-9 Test Value Unit Reference Range Code Code System Flag GLUCOSE 97 mg/dL L=70 H=116 2345-7 LOINC BUN 27 mg/dL L=6 H=25 3094-0 LOINC H CREATININE 1.28 mg/dL L=0.67 H=1.17 2160-0 LOINC H SODIUM SERUM 142 mmol/L L=136 H=145 2951-2 LOINC POTASSIUM SERUM 4.4 mmol/L L=3.4 H=5.2 2823-3 [facility] CHLORIDE SERUM 104 mmol/L L=96 H=110 2075-0 LOINC CARBON DIOXIDE (CO2) 27 mmol/L L=22 H=34 2028-9 LOINC ANION GAP 10.9 mmol/L 92828-4 [facility] CALCIUM SERUM 9.7 mg/dL L=8.2 H=10.2 54009-3 LOINC AGE 78 years eGFR (non-Afr.Amer.) 54 mL/min 72444-3 LOINC eGFR (Afr-Norwegian) 66 mL/min 09656-8 [facility] LIPID PANEL* - Collect Date/ Time: 10/04/2023 09:37 [facility] ID: [id number] [facility] [place], [place], [id number] LOINC: Test Value Unit Reference Range Code Code System Flag FASTING STATUS: NOT KNOWN CHOLESTEROL 157 mg/dL L=0 H=200 2093-3 LOINC TRIGLYCERIDES 211 mg/dL L=56 H=240 2571-8 LOINC HDL 44 mg/dL L=30 H=74 2085-9 LOINC non-HDL-C 113 mg/dL L=0 H=160 01082-4 LOINC LDL (CALC) 71 mg/dL L=0 H=130 92453-4 LOINC % HDL 28.0 % Chol/HDL Ratio 3.6 L=0.0 H=4.9 9830-1 LOINC CHD Relative Risk 0.7 x Avg L=0.0 H=1.0 LDL/HDL Ratio 1.6 L=0.0 H=3.5 16749-8 LOINC CHD Relative Risk. 0.5 x Avg L=0.0 H=1.0 Social History Type Status Start Date End Date Code Code Syst em Smoking History Never smoker (Never Smoked) 651344745 SNOMED CT Sex Male Medications Medication Start Date End Date Route Frequency Dose Code Code System Medication Instructions Home Meds Aspir Low 81MG Oral Tablet, Enteric Coated 05/31/2018 Unknown ORAL DAILY 81 MILLIGRAMS 7495965 RxNorm TAKE 81 MILLIGRAMS ORAL DAILY EPIPEN 0.9MG/0.3ML ;NO STREN MULITPL 05/31/2018 Unknown INTRAMUS CULAR NEEDED 1 RxNorm INJECT 1 INTRAMUSCULAR NEEDED GLUCOSAMINE TABLET 05/31/2018 Unknown ORAL DAILY 1 TABLET RxNorm TAKE 1 TABLE T ORAL DAILY Torsemide 20MG Oral Tablet 08/16/2023 12/10/19 24 ORAL DAILY 1 TABLET 841415 RxNorm TAKE 1 TABLET ORAL DAILY Assessment [...] SPECIFIED WHETHER PRIMARY OR SECONDARY, INVOLVIN active 169306715 SNOMED-C T Allergies and Adverse Reactions Allergy Substance Reaction Severity Start Date Concern Status Code Code Syste m BEE VENOM Anaphylaxis (SNOMED-CT: 92718389) Moderate Active Plan of Treatment Pre-Op Covid-19 Testing 02/18/2020 X-RAY 02/25/2023 NM MPI STR/RST 09/29/2022 X-RAY 04/02/2021 Encounters Encounter Diagnosis Start Date Code Code Sys tem Systolic heart failure 10/04/2023 872072181 SNOME D-CT Personal Care Team Section Performer Name Performer Role Active Date Inactive Da te
--- OUTSIDE RECORDS SUMMARY | 2023-12-30 15:23 | XMS_ITS ---
Author Organization Unknown Address [address] [place] [address] [phone] Phone Care Team Providers Care Pairing Machine Operator Name Role Phone INDU THOMPSON Mar Attending Unavailable ELADIO Altamirano Primary Unavailable Social History Type Status Start Date End Date Code Code Syst em Smoking History Never smoker (Never Smoked) 436752586 SNOMED CT Sex Male Medications Medication Start Date End Date Route Frequency Dose Code Code System Medication Instructions Home Meds Aspir Low 81MG Oral Tablet, Enteric Coated 05/31/2018 Unknown ORAL DAILY 81 MILLIGRAMS 8683911 RxNorm TAKE 81 MILLIGRAMS ORAL DAILY EPIPEN 0.9MG/0.3ML ;NO STREN MULITPL 05/31/2018 Unknown INTRAMUS CULAR NEEDED 1 RxNorm INJECT 1 INTRAMUSCULAR NEEDED GLUCOSAMINE TABLET 05/31/2018 Unknown ORAL DAILY 1 TABLET RxNorm TAKE 1 TABLE T ORAL DAILY Torsemide 20MG Oral Tablet 08/16/2023 12/10/19 24 ORAL DAILY 1 TABLET 334665 RxNorm TAKE 1 TABLET ORAL DAILY Assessment [...] SPECIFIED WHETHER PRIMARY OR SECONDARY, INVOLVIN active 377100209 SNOMED-C T Allergies and Adverse Reactions Allergy Substance Reaction Severity Start Date Concern Status Code Code Systcecil m BEE VENOM Anaphylaxis (SNOMED-CT: 35603098) Moderate Active Plan of Treatment Pre-Op Covid-19 Testing 02/18/2020 X-RAY 02/25/2023 NM MPI STR/RST 09/29/2022 X-RAY 04/02/2021 Encounters Encounter Diagnosis Start Date Code Code Sys tem Aortic stenosis, non-rheumatic 10/12/2023 505833501 SNOMED-CT Personal Care Team Section Performer Name Performer Role Active Date Inactive Da te
--- OUTSIDE RECORDS SUMMARY | 2023-12-30 15:24 | XMS_ITS ---
Author Organization Unknown Address [address], [place] [phone] Phone Care Team Providers Care Timber Selector Name Role Phone TIM MCCALLUM Registered Nurse Unavailable MARGO TOBIN Attending Unavailable ELADIO Altamirano Primary Unavailable UNLISTED PROVIDER - REQUESTED Xhandoff Un available Results BNP (PRO-B NATRIURETIC PEPTI DE) - Collect Date/Time: 12/10/2023 09:35 [facility] ID: [id number] [address] [place] [address], [address] LOINC: 31999-5 Test Value Unit Reference Range Code Code System Flag NT-proBNP 2852.0 pg/mL L=0.0 H=450 51193-7 LOINC H TROPONIN HIGH SENSITIVITY* - Collect Date/Time: 12/10/2023 09:35 [facility] ID: [id number] [address] [place] [address], [address] LOINC: 68974-9 Test Value Unit Reference Range Code Code System Flag TROPONIN HS 17.4 pg/mL L=0.0 H=60.4 Specimen seq. RANDOM BASIC METABOLIC PANEL (BMP) - Collect Date/Time: 12/10/2023 09:[address] [facility] ID: [id number] [address] [place] [address], [address] LOINC: 20504-1 Test Value Unit Reference Range Code Code System Flag GLUCOSE 112 mg/dL L=70 H=116 2345-7 LOINC BUN 21 mg/dL L=6 H=25 3094-0 LOINC CREATININE 1.39 mg/dL L=0.67 H=1.17 2160-0 LOINC H SODIUM SERUM 137 mmol/L L=136 H=145 2951-2 LOINC POTASSIUM SERUM 4.1 mmol/L L=3.4 H=5.2 2823-3 LOINC CHLORIDE SERUM 104 mmol/L L=96 H=110 2075-0 LOINC CARBON DIOXIDE (CO2) 25 mmol/L L=22 H=34 2028-9 LOINC ANION GAP 8.1 mmol/L 98076-7 LOINC CALCIUM SERUM 9.4 mg/dL L=8.2 H=10.2 49183-1 LOINC AGE 78 years eGFR (non-Afr.Amer.) 50 mL/min 27584-2 LOINC eGFR (Afr-Russian) 60 mL/min 11574-2 LOINC CBC W/ DIFFERENTIAL* - Colle ct Date/Time: 12/10/2023 08:38 [facility] ID: [id number] [address] [place] [address], [address] LOINC: 14898-1 Test Value Unit Reference Range Code Code System Flag WBC 8.98 th/cmm L=5.00 H=10.00 6690-2 LOINC NEUT % 65.6 % L=40.0 H=80.0 LYMPH % 24.1 % L=10.0 H=50.0 MONO % 7.3 % L=2.0 H=12.0 14217-8 LOINC EOS % 1.9 % L=0.0 H=8.0 BASO % 0.3 % L=0.0 H=3.0 IG % 0.8 % L=0.0 H=1.1 2514-8 LOINC NRBC % 0.0 % L=0.0 H=0.0 48776-7 LOINC NEUT abs count 5.9 th/cmm L=1.6 H=8.4 751-8 LOINC LYMPH abs count 2.2 th/cmm L=1.5 H=4.0 731-0 LOINC MONO abs count 0.7 th/cmm L=0.2 H=1.0 742-7 LOINC EOS abs count 0.2 th/cmm L=0.0 H=0.5 711-2 LOINC BASO abs count 0.0 th/cmm L=0.0 H=0.2 704-7 LOINC IG abs count 0.1 th/cmm L=0.0 H=0.1 34006-0 LOINC NRBC abs count 0.0 mil/cmm L=0.0 H=0.0 68588-5 LOINC RBC 4.68 mil/cmm L=4.30 H=6.20 789-8 LOINC HEMOGLOBIN 15.2 gm/dL L=13.0 H=17.0 718-7 LOINC HEMATOCRIT 43 % L=45 H=52 4544-3 LOINC L MCV 92 fL L=82 H=92 787-2 LOINC MCH 32.5 pg L=27.0 H=31.0 785-6 LOINC H MCHC 35.2 % L=32.0 H=36.0 786-4 LOINC RDW-SD 42.9 fL L=39.0 H=49.0 788-0 LOINC PLATELET COUNT 202 th/cmm L=150 H=450 777-3 LOINC Social History Type Status Start Date End Date Code Code Syst em Smoking History Never smoker (Never Smoked) 213012104 SNOMED CT Sex Male Vital Signs Vital Sign Value Unit Henderson Value Henderson Unit Date/Time Recent/Initial? Code Code System Body Mass Index 29.29 kg/m2 12/10/2023 08:24 Initial 39785 -5 LOINC Systolic Blood Pressure 128 mm[Hg] 12/10/2023 11:19 Most Recent 8480- 6 LOINC Diastolic Blood Pressure 85 mm[Hg] 12/10/2023 11:19 Most Recent 8462- 4 LOINC Systolic Blood Pressure 100 mm[Hg] 12/10/2023 08:24 Initial 8480- 6 LOINC Diastolic Blood Pressure 73 mm[Hg] 12/10/2023 08:24 Initial 8462- 4 LOINC Body Surface Area 2.18 m2 12/10/2023 08:24 Initial 3140- 1 LOINC Height 180.340 0 cm 71.00 in 12/10/2023 08:24 Initial 8302- 2 LOINC O2 Saturation 96 % 2023 11:19 Most Recent 79352 -5 LOINC O2 Saturation 100 % 2023 08:24 Initial 29503 -5 LOINC Pulse 75.0 /min 12/10/2023 11:19 Most Recent 8867- 4 LOINC Pulse 79.0 /min 12/10/2023 08:24 Initial 8867- 4 LOINC Respiration 14 /min 12/10/19 11:19 Most Recent 9279- 1 LOINC Respiration 15 /min 12/10/19 08:24 Initial 9279- 1 LOINC Temperature 36.0 Aaliyah 96.8 F 12/10/19 08:24 Initial 8310- 5 INC Weight 95.25 kg 210.00 lbs 12/10/2023 08:24 Initial 91366 -7 [facility] Medications Medication Start Date End Date Route Frequency Dose Code Code System Medication Instructions Home Meds Aspir Low 81MG Oral Tablet, Enteric Coated 05/31/2018 Unknown ORAL DAILY 81 MILLIGRAMS 0295924 RxNorm TAKE 81 MILLIGRAMS ORAL DAILY EPIPEN 0.9MG/0.3ML ;NO STREN MULITPL 05/31/2018 Unknown INTRAMUS CULAR NEEDED 1 RxNorm INJECT 1 INTRAMUSCULAR NEEDED GLUCOSAMINE TABLET 05/31/2018 Unknown ORAL DAILY 1 TABLET RxNorm TAKE 1 TABLE T ORAL DAILY Torsemide 20MG Oral Tablet 08/16/2023 12/10/19 24 ORAL DAILY 1 TABLET 978045 RxNorm TAKE 1 TABLET ORAL DAILY Assessment [...] SPECIFIED WHETHER PRIMARY OR SECONDARY, INVOLVIN active 219703892 SNOMED-C T Allergies and Adverse Reactions Allergy Substance Reaction Severity Start Date Concern Status Code Code Syste m BEE VENOM Anaphylaxis (SNOMED-CT: 84892463) Moderate Active Plan of Treatment Pre-Op Covid-19 Testing 02/18/2020 X-RAY 02/25/2023 NM MPI STR/RST 09/29/2022 X-RAY 04/02/2021 Encounters Encounter Diagnosis Start Date Code Code Sys tem Weakness 12/10/2023 SNOMED-CT Personal Care Team Section Performer Name Performer Role Active Date Inactive Da te
--- OUTSIDE RECORDS SUMMARY | 2023-12-30 15:24 | XMS_ITS ---
Author Organization Unknown Address [address] [place] [phone] Phone Care Team Providers Care Rn Appeals Name Role Phone LALITA MONICA Attending Unavailable ELADIO Altamirano Primary Unavailable Results CBC W/ DIFFERENTIAL* - Colle ct Date/Time: 11/10/2023 09:11 [facility] ID: [id number] [address], [place], [address] LOINC: 94061-1 Test Value Unit Reference Range Code Code System Flag WBC 5.72 th/cmm L=5.00 H=10.00 6690-2 LOINC NEUT % 45.9 % L=40.0 H=80.0 LYMPH % 42.0 % L=10.0 H=50.0 MONO % 9.1 % L=2.0 H=12.0 59704-4 LOINC EOS % 2.4 % L=0.0 H=8.0 BASO % 0.3 % L=0.0 H=3.0 IG % 0.3 % L=0.0 H=1.1 2514-8 LOINC NRBC % 0.0 % L=0.0 H=0.0 55148-6 LOINC NEUT abs count 2.6 th/cmm L=1.6 H=8.4 751-8 LOINC LYMPH abs count 2.4 th/cmm L=1.5 H=4.0 731-0 LOINC MONO abs count 0.5 th/cmm L=0.2 H=1.0 742-7 LOINC EOS abs count 0.1 th/cmm L=0.0 H=0.5 711-2 LOINC BASO abs count 0.0 th/cmm L=0.0 H=0.2 704-7 LOINC IG abs count 0.0 th/cmm L=0.0 H=0.1 05407-3 LOINC NRBC abs count 0.0 mil/cmm L=0.0 H=0.0 06175-8 LOINC RBC 5.31 mil/cmm L=4.30 H=6.20 789-8 LOINC HEMOGLOBIN 17.9 gm/dL L=13.0 H=17.0 718-7 LOINC H HEMATOCRIT 50 % L=45 H=52 4544-3 LOINC MCV 94 fL L=82 H=92 787-2 LOINC H MCH 33.7 pg L=27.0 H=31.0 785-6 LOINC H MCHC 35.9 % L=32.0 H=36.0 786-4 LOINC RDW-SD 45.1 fL L=39.0 H=49.0 788-0 LOINC PLATELET COUNT 204 th/cmm L=150 H=450 777-3 LOINC ALBUMIN* - Collect Date/Time : 11/10/2023 09:11 [facility] ID: [id number] [address] [place] [address], [address] LOINC: 1751-7 Test Value Unit Reference Range Code Code System Flag ALBUMIN 3.9 gm/dL L=3.4 H=5.0 1751-7 [facility]BMP) - Collect Date/Time: 11/10/2023 09:11 [facility] ID: [id number] [address] [place] [address], [address] LOINC: 13837-9 Test Value Unit Reference Range Code Code System Flag GLUCOSE 98 mg/dL L=70 H=116 2345-7 LOINC BUN 26 mg/dL L=6 H=25 3094-0 LOINC H CREATININE 1.27 mg/dL L=0.67 H=1.17 2160-0 LOINC H SODIUM SERUM 140 mmol/L L=136 H=145 2951-2 LOINC POTASSIUM SERUM 3.9 mmol/L L=3.4 H=5.2 2823-3 LOINC CHLORIDE SERUM 106 mmol/L L=96 H=110 5-0 LOINC CARBON DIOXIDE (CO2) 27 mmol/L L=22 H=34 8-9 LOINC ANION GAP 6.8 mmol/L 50370-2 LOINC CALCIUM SERUM 9.5 mg/dL L=8.2 H=10.2 61629-4 LOINC AGE 78 years eGFR (non-Afr.Amer.) 55 mL/min 91980-3 LOINC eGFR (Afr-Norwegian) 67 mL/min 53673-7 LOINC MRSA SCREEN BY PCR - Collect Date/Time: 11/10/2023 09:11 [facility] ID: [id number] - [id number] [address], [place], [phone] LOINC: 47163-2 Test Value Unit Reference Range Code Code System Flag MRSA NEGATIVE Normal: Negative 31571-6 LOINC Social History Type Status Start Date End Date Code Code Syst em Smoking History Never smoker (Never Smoked) 929076698 SNOMED CT Sex Male Medications Medication Start Date End Date Route Frequency Dose Code Code System Medication Instructions Home Meds Aspir Low 81MG Oral Tablet, Enteric Coated 05/31/2018 Unknown ORAL DAILY 81 MILLIGRAMS 5181655 RxNorm TAKE 81 MILLIGRAMS ORAL DAILY EPIPEN 0.9MG/0.3ML ;NO STREN MULITPL 05/31/2018 Unknown INTRAMUS CULAR NEEDED 1 RxNorm INJECT 1 INTRAMUSCULAR NEEDED GLUCOSAMINE TABLET 05/31/2018 Unknown ORAL DAILY 1 TABLET RxNorm TAKE 1 TABLE T ORAL DAILY Torsemide 20MG Oral Tablet 08/16/2023 12/10/19 24 ORAL DAILY 1 TABLET 911990 RxNorm TAKE 1 TABLET ORAL DAILY Assessment [...] SPECIFIED WHETHER PRIMARY OR SECONDARY, INVOLVIN active 523144594 SNOMED-C T Allergies and Adverse Reactions Allergy Substance Reaction Severity Start Date Concern Status Code Code Syste m BEE VENOM Anaphylaxis (SNOMED-CT: 64321406) Moderate Active Plan of Treatment Pre-Op Covid-19 Testing 02/18/2020 X-RAY 02/25/2023 NM MPI STR/RST 09/29/2022 X-RAY 04/02/2021 Encounters Encounter Diagnosis Start Date Code Code Sys tem 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
--- OUTSIDE RECORDS SUMMARY | 2023-12-30 15:24 | XMS_ITS ---
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 Code Code System Systolic Blood Pressure 145 mm[Hg] 12/09/2020 17:45 Most Recent 8480-6 LOINC Diastolic Blood Pressure 74 mm[Hg] 12/09/2020 17:45 Most Recent 8462-4 LOINC Systolic Blood Pressure 135 mm[Hg] 12/09/2020 17:03 Initial 8480-6 LOINC Diastolic Blood Pressure 70 mm[Hg] 12/09/2020 17:03 Initial 8462-4 LOINC O2 Saturation 98 % 2020 17:45 Most Recent 53644- 5 LOINC O2 Saturation 98 % 2020 17:03 Initial 03508- 5 LOINC Pulse 52.0 /min 12/09/2020 17:45 Most Recent 8867-4 LOINC Pulse 58.0 /min 12/09/2020 17:03 Initial 8867-4 LOINC Respiration 14 /min 12/10/19 17:45 Most Recent 9279-1 LOINC Respiration 14 /min 12/10/19 17:03 Initial 9279-1 [facility] Medications Medication Start Date End Date Route Frequency Dose Code Code System Medication Instructions Home Meds Allopurinol 100MG Oral Tablet 05/31/2018 08/16/2023 ORAL DAILY 100 MILLIGRAMS 19720531 RxNorm TAKE 100 MILLIGRAMS ORAL DAILY Aspir Low 81MG Oral Tablet, Enteric Coated 05/31/2018 Unknown ORAL DAILY 81 MILLIGRAMS 2257610 RxNorm TAKE 81 MILLIGRAMS ORAL DAILY Atorvastatin Calcium 40MG Oral Tablet 05/31/2018 08/16/2023 ORAL DAILY 40 MILLIGRAMS 687803 RxNorm TAKE 40 MILLIGRAMS ORAL DAILY Clopidogrel 75MG Oral Tablet 05/31/2018 12/18/2021 ORAL DAILY 75 MILLIGRAMS 306252 RxNorm TAKE 75 MILLIGRAMS ORAL DAILY EPIPEN 0.9MG/0.3ML;N O STREN MULITPL 05/31/2018 Unknown INTRAM USCULA R NEEDED 1 RxNorm INJECT 1 INTRAMUSCUL AR NEEDED GLUCOSAMINE TABLET 05/31/2018 Unknown ORAL DAILY 1 TABLET RxNorm TAKE 1 TABLET ORAL DAILY Lisinopril/hy droCHLOROthia zide 20MG-25MG Oral Tablet 05/31/2018 08/16/2023 ORAL DAILY 1 TABLET 014983 RxNorm TAKE 1 TABLET ORAL DAILY Pantoprazole Sodium 40MG Oral Tablet, Enteric Coated 05/31/2018 12/18/2021 ORAL DAILY 40 MILLIGRAMS 508899 RxNorm TAKE 40 MILLIGRAMS ORAL DAILY TYLENOL 325MG ORAL TABLET 05/31/2018 08/16/2023 ORAL FOUR TIMES A DAY 325 MILLIGRAMS RxNorm TAKE 325 MILLIGRAMS ORAL FOUR TIMES A DAY amLODIPine Besylate 5MG Oral Tablet 05/31/2018 08/16/2023 ORAL DAILY 5 MILLIGRAMS 267836 RxNorm TAKE 5 MILLIGRAMS ORAL DAILY Torsemide 20MG Oral Tablet 08/16/2023 12/10/2023 ORAL DAILY 1 TABLET 623670 RxNorm TAKE 1 TABLET ORAL DAILY Assessment You had the following problems:OSTEOARTHROSIS, LOCALIZED, NOT SPECIFIED WHETHER PRIMARY OR SECONDARY, INVOLVIN Hospital Discharge Instructions Should you have any questions prior to discharge, please contact a member of your healthcare team. If you have left the hospital and have any questions, please contact your primary care physician. Reason For Referral No Data Found Procedures Procedure Name Date Status Code Code Randy m Colsc Flx w/Rmvl Of Tumor Po lyp Lesion Snare Tq 12/09/2020 completed 13436 CPT EGD Removal Tumor Polyp/Othe r Lesion Snare Tech 12/09/2020 completed 46172 CPT EGD Transoral Biopsy Single/Multiple 12/09/2020 completed 90728 CPT Problems Problem Start Date Resolved Date Status Code Code System OSTEOARTHROSIS, LOCALIZED, N OT SPECIFIED WHETHER PRIMARY OR SECONDARY, INVOLVIN active 976952864 SNOMED-C T Allergies and Adverse Reactions Allergy Substance Reaction Severity Start Date Concern Status Code Code Syste m BEE VENOM Anaphylaxis (SNOMED-CT: 65833916) Moderate Active Plan of Treatment Pre-Op Covid-19 Testing 02/18/2020 X-RAY 02/25/2023 NM MPI STR/RST 09/29/2022 X-RAY 04/02/2021 Encounters Encounter Diagnosis Start Date Code Code Sys tem Encounter for screening for malignant neoplasm of colo n 12/09/2020 SNOMED-CT Personal Care Team Section Performer Name Performer Role Active Date Inactive Da te
[2023-12-30 21:27] LABS: Iron 102 ug/dL (65-175); Total Iron Binding Capacity 300 ug/dL (250-450)
[2023-12-30 21:46] LABS: ALT 48 U/L (16-63); AST 34 U/L (15-37); Alkaline Phosphatase 133 U/L (46-116); Anion Gap 7.4 mmol/L (3-11); BUN 27 mg/dL (7-18); Bilirubin, Total 0.63 mg/dL (0.2-1.0); CO2 25.6 mmol/L (21.0-32.0); CREATININE 1.3 mg/dL (0.70-1.30); Calcium 10.1 mg/dL (8.5-10.1); Chloride 104 mmol/L (98-107); Estimated GFR 56.58 (mL/min/1.73m2); Ferritin 201 ng/mL (26-388); Glucose 98 mg/dL (74-106); Magnesium 2.3 mg/dL (1.8-2.4); Potassium 4.7 mmol/L (3.5-5.1); Sodium 137 mmol/L (136-145); TSH 2.09 uIU/Ml (0.36-3.74); Total Protein 7.5 g/dL (6.4-8.2); Vitamin B12 494 pg/mL (193-986)
== END 2023-12-30 15:15 | disposition home or self-care (01) ==
LOC: NCHCN 15:14
PROVIDERS: PCP Internal Medicine; Visit Provider Internal Medicine
DX: R53.81 Other malaise (principal)
CPT/HCPCS: 80053; 82607; 82728; 83540; 83550; 83735; 84443

== ENCOUNTER 2024-09-10 17:57 | Outpatient (REF) | payer MEDICARE, SELFPAY ==
[2024-09-10 15:02] LABS: HCT 52.8 % (40.0-50.0); HGB 17.8 g/dL (13.5-17.5); MCH 33.1 pg (27.0-33.0); MCHC 33.7 % (32.0-36.0); MCV 98 fL (80-95); MPV 10.2 fL (8.0-11.0); Platelet Count 147 10^3/uL (130-400); RBC 5.38 10^6/uL (4.36-5.78); RDW 12.8 % (11.8-14.1); RDW-SD 45.5 fL; WBC 5.61 10^3/uL (4.4-10.8)
[2024-09-10 15:28] LABS: ALT 59 U/L (16-63); AST 47 U/L (15-37); Albumin 3.7 g/dL (3.4-5.0); Alkaline Phosphatase 82 U/L (46-116); Anion Gap 3.5 mmol/L (3-11); BUN 27 mg/dL (7-18); Bilirubin, Total 0.7 mg/dL (0.2-1.0); CO2 30.5 mmol/L (21.0-32.0); CREATININE 1.4 mg/dL (0.70-1.30); Calcium 9.7 mg/dL (8.5-10.1); Calculated LDL 53 mg/dL (<100); Chloride 110 mmol/L (98-107); Cholesterol 132 mg/dL (<200); Estimated GFR 51.45 (mL/min/1.73m2); Glucose 93 mg/dL (74-106); HDL Cholesterol 49 mg/dL (>or=40); Potassium 4.4 mmol/L (3.5-5.1); Sodium 144 mmol/L (136-145); Total Protein 6.9 g/dL (6.4-8.2); Triglyceride 152 mg/dL (<150)
== END 2024-09-10 17:58 | disposition home or self-care (01) ==
LOC: NCHCN 17:57
PROVIDERS: PCP Internal Medicine; Visit Provider Internal Medicine
DX: N18.31 Chronic kidney disease, stage 3a (principal); I25.10 Atherosclerotic heart disease of native coronary artery without angina pectoris
CPT/HCPCS: 80053; 80061; 85027

== ENCOUNTER 2025-03-13 17:10 | Outpatient (REF) | payer MEDICARE, SELFPAY ==
[2025-03-13 17:38] LABS: HCT 53.1 % (40.0-50.0); HGB 18.2 g/dL (13.5-17.5); MCH 33.0 pg (27.0-33.0); MCHC 34.3 % (32.0-36.0); MCV 96 fL (80-95); MPV 10.5 fL (8.0-11.0); Platelet Count 153 10^3/uL (130-400); RBC 5.52 10^6/uL (4.36-5.78); RDW 12.3 % (11.8-14.1); RDW-SD 44.1 fL; WBC 6.09 10^3/uL (4.4-10.8)
[2025-03-13 17:48] LABS: ALT 40 U/L (16-63); AST 32 U/L (15-37); Albumin 3.7 g/dL (3.4-5.0); Alkaline Phosphatase 72 U/L (46-116); Anion Gap 8.7 mmol/L (3-11); BUN 30 mg/dL (7-18); Bilirubin, Total 0.7 mg/dL (0.2-1.0); CO2 27.3 mmol/L (21.0-32.0); Calcium 9.4 mg/dL (8.5-10.1); Chloride 106 mmol/L (98-107); Estimated GFR 51.45 (mL/min/1.73m2); Glucose 84 mg/dL (74-106); Potassium 4.3 mmol/L (3.5-5.1); Sodium 142 mmol/L (136-145); Total Protein 7.0 g/dL (6.4-8.2); Uric Acid 4.4 mg/dL (3.5-7.2)
== END 2025-03-13 17:11 | disposition home or self-care (01) ==
LOC: NCHCN 17:10
PROVIDERS: PCP Internal Medicine; Visit Provider Internal Medicine
DX: M10.9 Gout, unspecified (principal); D75.1 Secondary polycythemia; R74.01 Elevation of levels of liver transaminase levels
CPT/HCPCS: 80053; 85027; 84550

== ENCOUNTER 2025-03-20 16:36 | Outpatient (REF) | payer MEDICARE, SELFPAY ==
[2025-03-20 18:18] LABS: COMMENT (LAB VIEW ONLY) 154.58 mg/dL; Microalb ug/mg Crea 17.5 ug/mg Cr
== END 2025-03-20 16:37 | disposition home or self-care (01) ==
LOC: NCHCN 16:36
PROVIDERS: PCP Internal Medicine; Visit Provider Internal Medicine
DX: D75.1 Secondary polycythemia (principal); N18.31 Chronic kidney disease, stage 3a
CPT/HCPCS: 81270; 82043; 82570